=== PATIENT | female | born 1985 | race Two or more races ===

== ENCOUNTER 2024-07-26 13:54 | Outpatient (AMB) | payer MEDICAID, SELFPAY ==
--- NOTE | 2024-07-26 14:27 | GSCOFFNT_ITS ---
Vital Signs - [facility] 07/26/24 14:28 Height 1.45 m Height Method Stated Weight 100.244 kg Weight Measurement Method Standing Scale BMI 47.8 BP 156/86 H Blood Pressure Source Automatic Cuff Blood Pressure Location Right Upper Arm Position Sitting Respiration 18 Pulse 65 Pulse Source Monitor Temp 97.2 F Temp Source Temporal Artery Scan Pulse Oximetry (%) 95 Oxygen Delivery Method Room Air Med/Allergies Allergies & Medications Allergies No Known Allergies Allergy (Verified 07/26/24 14:29) Medication Reconciliation azithromycin 250 mg tablet (Zithromax Z-Óscar) See Rx Instructions PO .COMPLEX #6 tabs 03/08/20 [Rx Confirmed 07/26/24] ibuprofen 800 mg tablet 800 mg PO TID PRN pain #30 tabs 03/08/20 [Rx Confirmed 07/26/24] MA Intake Visit Data Collection New Patient or Established: New Patient (never been to [facility]) Seen by Clinical Staff ONLY (RN/MA): No Reason for Visit:: HERNIA REFERRAL Pain Present Currently: No Remote Pilot Operator Required: Yes PCP or OBGYN visit in last 3 months: Yes Hx Now: No Do You Feel Safe at Home: Yes Authorities Contacted: N/A Smoking Status Smoking Status: Never smoker Immunization / Flu Flu Vaccine in the Last 12 Months: No Flu Vaccine Exclusion Criteria: No Exclusion Criteria Past Medical History Past Medical History 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); 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 CARDIAC: Negative Cardiac Disorders, Congestive Heart Failure, Edema, Cellulitis or Varicose Veins RESPIRATORY: Negative Chronic Obstructive Pulmonary Disease (COPD), Pneumonia, Tuberculosis or Sleep Apnea GASTROINTESTINAL: Positive Gastrointestinal Disorders and Gall Bladder Disease (LAP); Negative Hepatitis GENITOURINARY: Negative Genitourinary Disorders or Renal Disease REPRODUCTIVE: Positive Previous Pregnancies (X3) ENDOCRINE: Negative Endocrine Disorders, Diabetes Mellitus Type 1 or Diabetes Mellitus Type 2 HEMATOLOGIC: Negative Blood Disorders OTHER HISTORY: Positive Chicken Pox and Measles; Negative Hospitalization, Autoimmune Disease, Shingles, Falls, Blood Transfusions, Blood Transfusion Reaction, Anesthesia Reactions, Chemotherapy, Radiation Therapy, MRSA, Mumps or Cancer Family History FAMILY HISTORY: Negative Family Psychiatric Problems, Family Respiratory Disorders, Family Cardiac Disorders, Family Gastrointestinal Problems, Family Cancer, Family Surgery or Family Anesthesia Reaction Surgical History SURGICAL: Positive Section (X2); Negative Cardiac Surgery or Pacemaker Social History SMOKING STATUS: Smoking status: Never smoker ALCOHOL: Alcohol Intake: Never HOUSING: Housing: Apartment HPI HPI Narrative 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 Pt reports she has had it for years and it tends to bother her daily, associated with pain that sometimes makes it difficult for her to sleep. She denies any obstructive symptoms. PMH: Obesity PSHx: Cholecystectomy Meds: none currently (pt had been taking ozempic for weight loss which she states helped but was no longer approved by her insurance as she does not have DM) Allergies: NKDA Social hx: Nonsmoker, works in [employer] ROS Review of Systems Systems Reviewed: All systems reviewed, normal except as documented Objective/Exam General General Appearance: alert, cooperative and well groomed Resp Respiratory exam: Absent respiratory distress Abdominal Abdominal exam: Present soft and hernia (reducible umbilical hernia, mild tenderness to palpation, no overlying skin changes); Absent distention or tenderness Results US abdomen 06/01/24 at [facility] [place]: fat containing hernia without bowel l oops. Hernia opening 1.8cm. Hernia sac measures 4.4cm Assessment & Plan Diagnosis / Problem List (1) Umbilical hernia: Status: Acute Assessment & Plan: 38F with BMI 47 presenting with symptomatic small umbilical hernia. I explained that surgery will have the best chance of success if she is able to lose weight for a goal BMI <35, which for her would mean a weight loss of approx 50lbs (goal of 170lbs), as surgery now would a confer a recurrence rate approximate 80%. Pt will reach out to her PCP to discuss weight loss options and stated that she would consider bariatric surgery. 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 3 ([id number]) Patient Portal Questionaires Social History Living Situation History Housing: Apartment Tobacco History Smoking Status: Never smoker Alcohol History Alcohol Intake: Never Domestic Abuse History Do You Feel Safe at Home: Yes Review of Systems Report any current symptoms Only answer those that you have currently: Past Medical History Past Medical History Have you ever been diagnosed with any of the following: Neurological Problems Seizures: No Delgado's Palsy: Yes (LEFT FACIAL DROOP 2012) Cardiology Problems Congestive Heart Failure: No Edema: No Cellulitis: No Varicose Veins: No Respiratory Problems Chronic Obstructive Pulmonary Disease (COPD): No Pneumonia: No Tuberculosis: No Sleep Apnea: No Stomache/Intestinal Problems Hepatitis: No Gall Bladder Disease: Yes (LAP) Genital/Urinary Problems Renal Disease: No Reproductive Problems Previous Pregnancies: Yes (X3) Endocrine Problems Diabetes Mellitus Type 1: No Diabetes Mellitus Type 2: No Other Problems Hospitalization: No Autoimmune Disease: No Shingles: No Falls: No Blood Transfusions: No Blood Transfusion Reaction: No Anesthesia Reactions: No Chemotherapy: No Radiation Therapy: No MRSA: No Chicken Pox: Yes Measles: Yes Mumps: No Cancer: No Surgical History Pacemaker: No
[2024-07-26 14:28] VITALS: BP 156/86; PULSE 65; RESP 18; TEMP 36.2; O2SAT 95; BMI 47.8
== END 2024-07-26 15:02 | disposition home or self-care (01) ==
LOC: HODSRG 13:54
PROVIDERS: PCP Physician Assistant; Referring Provider Physician Assistant; Supervising Provider Surgery; Visit Provider Surgery
DX: K42.9 Umbilical hernia without obstruction or gangrene (principal)
CPT/HCPCS: 99203; G0463

== ENCOUNTER 2024-08-18 03:24 | Emergency (ER) | payer MEDICAID, SELFPAY ==
[2024-08-18 03:32] VITALS: BP 155/69; PULSE 59; RESP 19; TEMP 36.6; O2SAT 98; BMI 41.0
--- NOTE | 2024-08-18 04:02 | EDNOTE_ITS ---
ED Ear RME/HPI General Chief complaint: Ear Stated complaint: SOMETHING IN RIGHT EAR Time Seen by Provider: 08/18/24 03:54 Arrival date/time: 08/18/24 03:24 38F with no significant PMH presents to ED with bug in R ear. Limitations: no limitations Related Data Previous Rx's ?Medication ?Instructions ?Recorded azithromycin 250 mg tablet See Rx Instructions PO .COMPLEX #6 03/08/20 (Zithromax Z-Óscar) tabs ibuprofen 800 mg tablet 800 mg PO TID PRN pain #30 tabs 03/08/20 [id number] 3.5 4 drp otic (ear) BID 5 days #10 mL 08/18/24 mg-10,000 unit/mL-1 % ear drops,susp Allergies Allergy/AdvReac Type Severity Reaction Status Date / Time No Known Allergies Allergy Verified 07/26/24 14:29 Review of Systems Review of Systems Systems Reviewed: All systems reviewed, normal except as documented Constitutional Constitutional: Reports system reviewed and no additional complaints, except as documented, Denies fever(s) and Denies headache(s) ENT Ears, Nose, Mouth, and Throat: Reports as per HPI, Denies disequilibrium, Reports otalgia (FB ear) and Denies headache(s) Cardiovascular Cardiovascular: Reports system reviewed and no additional complaints, except as documented, Denies chest pain and Denies dyspnea Respiratory Respiratory: Reports system reviewed and no additional complaints, except as documented, Denies cough and Denies dyspnea Gastrointestinal Gastrointestinal: Reports system reviewed and no additional complaints, except as documented, Denies abdominal pain, Denies nausea and Denies vomiting Neurologic Neurologic: Reports system reviewed and no additional complaints, except as documented, Denies confusion, Denies disequilibrium and Denies headache(s) Psychiatric Psychiatric: Denies confusion Past Medical History Past Medical History 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); 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 CARDIAC: Negative Cardiac Disorders, Congestive Heart Failure, Edema, Cellulitis or Varicose Veins RESPIRATORY: Negative Chronic Obstructive Pulmonary Disease (COPD), Pneumonia, Tuberculosis or Sleep Apnea GASTROINTESTINAL: Positive Gastrointestinal Disorders and Gall Bladder Disease (LAP); Negative Hepatitis GENITOURINARY: Negative Genitourinary Disorders or Renal Disease REPRODUCTIVE: Positive Previous Pregnancies (X3) MUSCULOSKELETAL: Positive Musculoskeletal Disorders ENDOCRINE: Negative Endocrine Disorders, Diabetes Mellitus Type 1 or Diabetes Mellitus Type 2 HEMATOLOGIC: Negative Blood Disorders OTHER HISTORY: Positive Chicken Pox and Measles; Negative Hospitalization, Autoimmune Disease, Shingles, Falls, Blood Transfusions, Blood Transfusion Reaction, Anesthesia Reactions, Chemotherapy, Radiation Therapy, MRSA, Mumps or Cancer Family History FAMILY HISTORY: Negative Family Psychiatric Problems, Family Respiratory Disorders, Family Cardiac Disorders, Family Gastrointestinal Problems, Family Cancer, Family Surgery or Family Anesthesia Reaction Surgical History SURGICAL: Positive Section (X2); Negative Cardiac Surgery or Pacemaker Social History SMOKING STATUS: Never smoker ED Exam General Limitations: Present no limitations General appearance: Present alert and in no apparent distress Head Head exam: Present atraumatic Eye Eye exam: Present normal appearance, PERRL and EOMI ENT ENT exam: Present normal oropharynx and mucous membranes moist Expanded ENT Exam TM/Canal exam: Right TM: foreign body Neck Neck exam: Present normal inspection, full ROM and trachea midline Chest Chest inspection: Present normal inspection and symmetric chest wall rise Respiratory Respiratory exam: Present normal lung sounds bilaterally Cardiovascular Cardiovascular exam: Present regular rate, normal rhythm and normal heart sounds Abdominal Exam Abdominal exam: Present soft and normal bowel sounds Extremities Exam Extremities exam: Present normal inspection and full ROM Back Exam Back exam: Present normal inspection and full ROM Neurological Exam Neurological exam: Present alert, oriented X3 and CN II-XII intact Psychiatric Psychiatric exam: Present normal affect and normal mood Skin Skin exam: Present warm, dry, intact and normal color Course Quality Measures none Orders Category Date Time Status ED Ear Irrigation X1 Care 08/18/24 03:55 Active Vital Signs Vital signs: Vital Signs Temperature 98 F 08/18/24 03:32 Pulse Rate 59 L 08/18/24 03:32 Respiratory Rate 19 08/18/24 03:32 Blood Pressure 155/69 H 08/18/24 03:32 Pulse Oximetry (%) 98 08/18/24 03:32 Oxygen Delivery Method Room Air 08/18/24 03:32 O2 at 98% on RA and WNLs Ear MDM Narrative MDM Narrative:: 38F with no significant PMH presents to ED with bug in R ear. Physical exam reveals bug in R ear. Patient is afebrile, calm, and alert. FB removed. ABX prophylaxis given. Patient data External records reviewed:: [facility] previous records Clinical information provided by:: patient Social determinants that could affect healthcare access:: none Patient has the following chronic illnesses:: none How is presenting disease/condition affected by chronic disease/condition?: no chronic disease Evaluation data The following diagnostics were reviewed and interpreted by me:: other (specify) (none) Lab and/or radiology exams considered but not ordered:: not ordered Interpretation Summary: n/a Medications / Prescriptions Medications or Prescriptions considered but not ordered:: not ordered Medication administrations:: n/a Consultations Consultation(s) initiated? (list below): No Diagnosis Ear Differential Diagnosis: otitis externa, otitis media, foreign body in ear, ruptured TM and cerumen impaction Most likely diagnosis given after review of the tests above:: FB ear Admission Indicated Admission indicated?: not indicated Explain why admission is indicated or not indicated:: outpatient Admission Request Was there a request for admission?: No Disposition Plan Disposition Plan: Discharge Discharge Attestation Discharge Attestation: The patient and all family members were given an opportunity to ask questions and understood the discharge instructions. Discharge instructions specifically effects, indications for sooner follow up or return to the emergency department, and the expected course of current diagnosis. Patient condition: Stable Discharge Plan Plan Patient Disposition: HOME (Self Care) Disposition Comment: Stable Prescriptions/Referrals Prescriptions/Med Rec: New iupfmotl-xzqpjfeng-TN 3.5-10,000-1 mg/mL-unit/mL-% drops,suspension 4 drp otic (ear) BID 5 Days Qty: 10 0RF No Action ibuprofen 800 mg tablet 800 mg PO TID PRN (Reason: pain) Qty: 30 0RF azithromycin [Zithromax Z-Óscar] 250 mg tablet See Rx Instructions .ROUTE .COMPLEX Qty: 6 0RF Rx Instructions: take 500 mg today (day 1), then 250 mg for 4 days (days 2-5) Problem List Clinical Impression: Foreign body in ear Patient/Caregiver Discharge Instructions Additional Instructions: Please follow-up with PCP within 24-48 hours and return immediately if symptoms worsen. Print Language: Turkmen Stand Alone Forms: Patient Portal Info Letter FARHEEN/JACY Supervising Physician FARHEEN/JACY Supervising Physician: Dr. Hugo
== END 2024-08-18 04:27 | disposition home or self-care (01) ==
PROVIDERS: Emergency Provider Emergency Medicine; PCP Physician Assistant
DX: T16.1XXA Foreign body in right ear, initial encounter (principal); W44.F4XA Insect entering into or through a natural orifice, initial encounter
CPT/HCPCS: 69200; 99283

== ENCOUNTER 2024-09-27 15:02 | Outpatient (AMB) | payer MEDICAID, SELFPAY ==
[2024-09-27 15:18] VITALS: BP 145/82; PULSE 68; RESP 18; TEMP 36.2; O2SAT 95; BMI 40.7
--- NOTE | 2024-09-27 15:18 | GSCOFFNT_ITS ---
Vital Signs - [facility] 09/27/24 15:18 Height 1.52 m Height Method Stated Weight 94.149 kg Weight Measurement Method Standing Scale BMI 40.7 BP 145/82 H Blood Pressure Source Automatic Cuff Blood Pressure Location Left Upper Arm Position Sitting Respiration 18 Pulse 68 Pulse Source Monitor Temp 97.1 F Temp Source Temporal Artery Scan Pulse Oximetry (%) 95 Oxygen Delivery Method Room Air Med/Allergies Allergies & Medications Allergies No Known Allergies Allergy (Verified 09/27/24 15:19) Medication Reconciliation azithromycin 250 mg tablet (Zithromax Z-Óscar) See Rx Instructions PO .COMPLEX #6 tabs 03/08/20 [Rx Confirmed 09/27/24] ibuprofen 800 mg tablet 800 mg PO TID PRN pain #30 tabs 03/08/20 [Rx Confirmed 09/27/24] MA Intake Visit Data Collection New Patient or Established: Established Patient (seen at [facility] within 3 years) Seen by Clinical Staff ONLY (RN/MA): No Reason for Visit:: FOLLOW UP Pain Present Currently: No Anchor Operator Required: Yes PCP or OBGYN visit in last 3 months: Yes Hx Now: No Do You Feel Safe at Home: Yes Authorities Contacted: N/A Smoking Status Smoking Status: Never smoker Immunization / Flu Flu Vaccine in the Last 12 Months: No Flu Vaccine Exclusion Criteria: No Exclusion Criteria Past Medical History Past Medical History 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); 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 CARDIAC: Negative Cardiac Disorders, Congestive Heart Failure, Edema, Cellulitis or Varicose Veins RESPIRATORY: Negative Chronic Obstructive Pulmonary Disease (COPD), Pneumonia, Tuberculosis or Sleep Apnea GASTROINTESTINAL: Positive Gastrointestinal Disorders and Gall Bladder Disease (LAP); Negative Hepatitis GENITOURINARY: Negative Genitourinary Disorders or Renal Disease REPRODUCTIVE: Positive Previous Pregnancies (X3) ENDOCRINE: Negative Endocrine Disorders, Diabetes Mellitus Type 1 or Diabetes Mellitus Type 2 HEMATOLOGIC: Negative Blood Disorders OTHER HISTORY: Positive Chicken Pox and Measles; Negative Hospitalization, Autoimmune Disease, Shingles, Falls, Blood Transfusions, Blood Transfusion Reaction, Anesthesia Reactions, Chemotherapy, Radiation Therapy, MRSA, Mumps or Cancer Family History FAMILY HISTORY: Negative Family Psychiatric Problems, Family Respiratory Disorders, Family Cardiac Disorders, Family Gastrointestinal Problems, Family Cancer, Family Surgery or Family Anesthesia Reaction Surgical History SURGICAL: Positive Section (X2); Negative Cardiac Surgery or Pacemaker Social History SMOKING STATUS: Smoking status: Never smoker ALCOHOL: Alcohol Intake: Never HOUSING: Housing: Apartment HPI HPI Narrative 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 At last visit we discussed that a BMI <35 would confer a higher chance of success for surgery, translating to a loss of 50lbs. Pt has since begun taking wegovy, and she adjusted her diet to cut out carbs and sugar. She continues to have discomfort from the hernia but finds it manageable, and was also recently diagnosed with HTN, preDM and liver disease ROS Review of Systems Systems Reviewed: All systems reviewed, normal except as documented Objective/Exam General General Appearance: alert, cooperative and well groomed Resp Respiratory exam: Absent respiratory distress Abdominal Abdominal exam: Present soft and hernia (reducible umbilical hernia); Absent distention or tenderness Assessment & Plan Diagnosis / Problem List (1) Umbilical hernia: Status: Acute Assessment & Plan: 38F here for follow up of umbilical hernia. I explained that if her pain were not manageable it would be reasonable to pursue surgery before she attains BMI <35, but that if pain is not too bothersome I would recommend continuing her weight loss efforts to maximize the chance of success. Pt expressed understanding and is agreeable to continuing her weight loss, but will reach out if concerns or questions arise before her next follow up Plan: Follow up in 3 mos Office Procedures GNS Level of Care Nursing/Assessment Patient Status: Established Patient Nursing Assessment/Reassesment: Medication Reconciliation, Update PMH in EMR and Vital Signs Coordination of Care: Complex Care and Chronic Disease 1-5, Consent,records obtained, informed consent, Education Simp Pt/Fam, Results/Orders obtained and Staff clarify orders Special Needs: Language special needs Established Patient Charge Established Patient Point Assignment: 90 Established Patient Point Charge: EP Level 3 (80-115) Patient Portal Questionaires Social History Living Situation History Housing: Apartment Tobacco History Smoking Status: Never smoker Alcohol History Alcohol Intake: Never Domestic Abuse History Do You Feel Safe at Home: Yes Review of Systems Report any current symptoms Only answer those that you have currently: Past Medical History Past Medical History Have you ever been diagnosed with any of the following: Neurological Problems Seizures: No Delgado's Palsy: Yes (LEFT FACIAL DROOP 2012) Cardiology Problems Congestive Heart Failure: No Edema: No Cellulitis: No Varicose Veins: No Respiratory Problems Chronic Obstructive Pulmonary Disease (COPD): No Pneumonia: No Tuberculosis: No Sleep Apnea: No Stomache/Intestinal Problems Hepatitis: No Gall Bladder Disease: Yes (LAP) Genital/Urinary Problems Renal Disease: No Reproductive Problems Previous Pregnancies: Yes (X3) Endocrine Problems Diabetes Mellitus Type 1: No Diabetes Mellitus Type 2: No Other Problems Hospitalization: No Autoimmune Disease: No Shingles: No Falls: No Blood Transfusions: No Blood Transfusion Reaction: No Anesthesia Reactions: No Chemotherapy: No Radiation Therapy: No MRSA: No Chicken Pox: Yes Measles: Yes Mumps: No Cancer: No Surgical History Pacemaker: No
== END 2024-09-27 15:37 | disposition home or self-care (01) ==
LOC: HODSRG 15:02
PROVIDERS: PCP Physician Assistant; Referring Provider Physician Assistant; Supervising Provider Surgery; Visit Provider Surgery
DX: K42.9 Umbilical hernia without obstruction or gangrene (principal)
CPT/HCPCS: 99213; G0463

== ENCOUNTER 2024-12-29 13:38 | Outpatient (AMB) | payer MEDICAID, SELFPAY ==
[2024-12-29 14:04] VITALS: BP 120/77; PULSE 60; RESP 18; TEMP 36.3; O2SAT 96; BMI 36.6
--- NOTE | 2024-12-29 14:04 | GSCOFFNT_ITS ---
Vital Signs - [facility] 12/29/24 14:04 Height 1.52 m Height Method Stated Weight 84.595 kg Weight Measurement Method Standing Scale BMI 36.6 BP 120/77 Blood Pressure Source Automatic Cuff Blood Pressure Location Right Upper Arm Position Sitting Respiration 18 Pulse 60 Pulse Source Monitor Temp 97.3 F Temp Source Temporal Artery Scan Pulse Oximetry (%) 96 Oxygen Delivery Method Room Air Med/Allergies Allergies & Medications Allergies No Known Allergies Allergy (Verified 12/29/24 14:10) Medication Reconciliation azithromycin 250 mg tablet (Zithromax Z-Óscar) See Rx Instructions PO .COMPLEX #6 tabs 03/08/20 [Rx Confirmed 12/29/24] ibuprofen 800 mg tablet 800 mg PO TID PRN pain #30 tabs 03/08/20 [Rx Confirmed 12/29/24] MA Intake Visit Data Collection New Patient or Established: Established Patient (seen at [facility] within 3 years) Seen by Clinical Staff ONLY (RN/MA): No Reason for Visit:: F/U 3 MONTHS Pain Present Currently: Yes Pain Location: Abdomen Pain scale:: 3 Pain Scale Used: Sheppard-Moran/Numerical Electric Range Servicer Required: Yes PCP or OBGYN visit in last 3 months: Yes Hx Now: No Do You Feel Safe at Home: Yes Authorities Contacted: N/A Smoking Status Smoking Status: Never smoker Immunization / Flu Flu Vaccine in the Last 12 Months: No Flu Vaccine Exclusion Criteria: No Exclusion Criteria Past Medical History Past Medical History 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; 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 CARDIAC: Negative Cardiac Disorders, Congestive Heart Failure, Edema, Cellulitis or Varicose Veins RESPIRATORY: Negative Chronic Obstructive Pulmonary Disease (COPD), Pneumonia, Tuberculosis or Sleep Apnea GASTROINTESTINAL: Positive Gastrointestinal Disorders and Gall Bladder Disease; Negative Hepatitis GENITOURINARY: Negative Genitourinary Disorders or Renal Disease REPRODUCTIVE: Positive Previous Pregnancies ENDOCRINE: Negative Endocrine Disorders, Diabetes Mellitus Type 1 or Diabetes Mellitus Type 2 HEMATOLOGIC: Negative Blood Disorders OTHER HISTORY: Positive Chicken Pox and Measles; Negative Hospitalization, Autoimmune Disease, Shingles, Falls, Blood Transfusions, Blood Transfusion Reaction, Anesthesia Reactions, Chemotherapy, Radiation Therapy, MRSA, Mumps or Cancer Family History FAMILY HISTORY: Negative Family Psychiatric Problems, Family Respiratory Disorders, Family Cardiac Disorders, Family Gastrointestinal Problems, Family Cancer, Family Surgery or Family Anesthesia Reaction Surgical History SURGICAL: Positive Section (X2); Negative Cardiac Surgery or Pacemaker Social History SMOKING STATUS: Smoking status: Never smoker ALCOHOL: Alcohol Intake: Never HOUSING: Housing: Apartment HPI HPI Narrative Spoke to pt with in-person manager field services 39F here for follow up of umbilical hernia. Pt has been working hard at weight loss and her BMI is now 36. She has occasional pains at her umbilicus but it is overall manageable. Pt does report that she has occasional drainage from her umbilicus which is yellow and malodorous; she states she has had this for years but it comes and goes and she has not had any workup for it. She denies any dysuria or change in the appearance of her urine ROS Review of Systems Systems Reviewed: All systems reviewed, normal except as documented Objective/Exam General General Appearance: alert, cooperative and well groomed Resp Respiratory exam: Absent respiratory distress Abdominal Abdominal exam: Present soft and hernia (reducible umbilical hernia, tender with malodor but no current drainage and no overlying skin changes); Absent distention or tenderness Assessment & Plan Diagnosis / Problem List (1) Umbilical hernia: Status: Acute Assessment & Plan: 39F with known umbilical hernia reporting chronic intermittent umbilical drainage. I explained that before surgery she should undergo workup to evaluate for a patent urachus which might explain her symptoms and would require a different surgical approach. All questions were answered and pt expressed understanding Orders: Orders CT abdomen pelvis w con Today K42.9 - Umbilical hernia without obstruction or gangrene Office Procedures GNS Level of Care Nursing/Assessment Patient Status: Established Patient Nursing Assessment/Reassesment: Medication Reconciliation, Update PMH in EMR and Vital Signs Coordination of Care: Complex Care and Chronic Disease 1-5, Education Complex Pt/Fam, Consent,records obtained, informed consent, Results/Orders obtained and Staff clarify orders Special Needs: Language special needs Established Patient Charge Established Patient Point Assignment: 95 Established Patient Point Charge: EP Level 3 (80-115) Patient Portal Questionaires Social History Living Situation History Housing: Apartment Tobacco History Smoking Status: Never smoker Alcohol History Alcohol Intake: Never Domestic Abuse History Do You Feel Safe at Home: Yes Review of Systems Report any current symptoms Only answer those that you have currently: Past Medical History Past Medical History Have you ever been diagnosed with any of the following: Neurological Problems Seizures: No Delgado's Palsy: Yes Cardiology Problems Congestive Heart Failure: No Edema: No Cellulitis: No Varicose Veins: No Respiratory Problems Chronic Obstructive Pulmonary Disease (COPD): No Pneumonia: No Tuberculosis: No Sleep Apnea: No Stomache/Intestinal Problems Hepatitis: No Gall Bladder Disease: Yes Genital/Urinary Problems Renal Disease: No Reproductive Problems Previous Pregnancies: Yes Endocrine Problems Diabetes Mellitus Type 1: No Diabetes Mellitus Type 2: No Other Problems Hospitalization: No Autoimmune Disease: No Shingles: No Falls: No Blood Transfusions: No Blood Transfusion Reaction: No Anesthesia Reactions: No Chemotherapy: No Radiation Therapy: No MRSA: No Chicken Pox: Yes Measles: Yes Mumps: No Cancer: No Surgical History Pacemaker: No
== END 2024-12-29 14:20 | disposition home or self-care (01) ==
LOC: HODSRG 13:38
PROVIDERS: PCP Physician Assistant; Referring Provider Physician Assistant; Supervising Provider Surgery; Visit Provider Surgery
DX: K42.9 Umbilical hernia without obstruction or gangrene (principal)
CPT/HCPCS: 99213; G0463

== ENCOUNTER → 2025-01-26 | Outpatient (CLI) | payer MEDICAID, SELFPAY ==
[2025-01-25 16:52] LABS: HCG Qualitative,Urine Negative
--- NOTE | 2025-01-26 15:00 | XR_ITS ---
Examination: CT abdomen with intravenous contrast. Coronal 2-D reconstructions. Sagittal 2-D reconstructions. Date and time of exam:January 26, 2025 1510 hours INDICATIONS: Diagnosis umbilical pain beginning fluid from the umbilicus CTDI: vol (mGy): 12.3 DLP: (mGycm): 102 Technique: Axial images of the abdomen have been obtained, 3 mm slice thickness, 60 cc [id number] 2-D sagittal coronal reconstructions Low dose protocols were performed. One or more of the following dose reduction techniques were used; automated exposure control, adjustment of the mA and/or KV according to patient size, use of iterative reconstruction technique. Findings: No focal liver or splenic lesion Absent gallbladder No extra hepatic biliary tract dilatation No pancreatic mass No renal or ureteral calculi, no hydronephrosis 32 mm fat-containing umbilical hernia These images do not actually extend through the entire hernia defect IMPRESSION: 32 mm fat-containing umbilical hernia, these abdomen images do not extend to the entire hernia defect
== END | disposition home or self-care (01) ==
LOC: CCTX 14:44
PROVIDERS: Referring Provider Surgery; Visit Provider Surgery
DX: K42.9 Umbilical hernia without obstruction or gangrene (principal); Z32.00 Encounter for pregnancy test, result unknown
CPT/HCPCS: 74160; 81025; A4649; Q9967

== ENCOUNTER → 2025-03-04 | Outpatient (CLI) | payer MEDICAID, SELFPAY ==
--- NOTE | 2025-03-04 10:00 | XR_ITS ---
Examination: Abdomen sonogram, complete Date and time of exam: March 04, 2025 1007 hours INDICATIONS: Umbilical discharge and pain beginning 6 months ago. Technique: Multiple real-time grayscale transabdominal sonographic images of the abdomen have been obtained. Findings: Absent gallbladder Normal common bile duct 0.5 cm Pancreatic head 2.5 cm Aorta not enlarged Liver 14.7 cm fatty infiltration no focal liver lesions Normal hepatopedal portal venous flow Patent IVC Right kidney 11.3 cm cortex 1.9 cm Left kidney 11.4 cm cortex 1.8 cm Mild bilateral renal parenchymal scar formation Spleen 9.2 cm IMPRESSION: Normal common bile duct Fatty liver Mild bilateral renal parenchymal scar formation
== END | disposition home or self-care (01) ==
PROVIDERS: PCP Surgery; Referring Provider Surgery; Visit Provider Surgery
DX: K76.0 Fatty (change of) liver, not elsewhere classified (principal); N28.89 Other specified disorders of kidney and ureter
CPT/HCPCS: 76700

== ENCOUNTER 2025-03-14 11:26 | Outpatient (AMB) | payer MEDICAID, SELFPAY ==
[2025-03-14 11:34] VITALS: BP 128/80; PULSE 60; RESP 18; TEMP 36.6; O2SAT 98; BMI 34.4
--- NOTE | 2025-03-14 11:34 | GSCOFFNT_ITS ---
Vital Signs - [facility] 03/14/25 11:34 Height 1.52 m Height Method Stated Weight 79.577 kg Weight Measurement Method Standing Scale BMI 34.4 BP 128/80 Blood Pressure Source Automatic Cuff Blood Pressure Location Left Upper Arm Position Sitting Respiration 18 Pulse 60 Pulse Source Monitor Temp 97.9 F Temp Source Temporal Artery Scan Pulse Oximetry (%) 98 Oxygen Delivery Method Room Air Med/Allergies Allergies & Medications Allergies No Known Allergies Allergy (Verified 03/14/25 11:35) Medication Reconciliation azithromycin 250 mg tablet (Zithromax Z-Óscar) See Rx Instructions PO .COMPLEX #6 tabs 03/08/20 [Rx Confirmed 03/14/25] ibuprofen 800 mg tablet 800 mg PO TID PRN pain #30 tabs 03/08/20 [Rx Confirmed 03/14/25] MA Intake Visit Data Collection New Patient or Established: Established Patient (seen at [facility] within 3 years) Seen by Clinical Staff ONLY (RN/MA): No Reason for Visit:: US RESULTS Pain Present Currently: No Char Filter Tank Tender Required: Yes PCP or OBGYN visit in last 3 months: Yes Smoking Status Smoking Status: Never smoker Immunization / Flu Flu Vaccine in the Last 12 Months: No Flu Vaccine Exclusion Criteria: No Exclusion Criteria Past Medical History Past Medical History 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; 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 CARDIAC: Negative Cardiac Disorders, Congestive Heart Failure, Edema, Cellulitis or Varicose Veins RESPIRATORY: Negative Chronic Obstructive Pulmonary Disease (COPD), Pneumonia, Tuberculosis or Sleep Apnea GASTROINTESTINAL: Positive Gastrointestinal Disorders and Gall Bladder Disease; Negative Hepatitis GENITOURINARY: Negative Genitourinary Disorders or Renal Disease REPRODUCTIVE: Positive Previous Pregnancies ENDOCRINE: Negative Endocrine Disorders, Diabetes Mellitus Type 1 or Diabetes Mellitus Type 2 HEMATOLOGIC: Negative Blood Disorders OTHER HISTORY: Positive Chicken Pox and Measles; Negative Hospitalization, Autoimmune Disease, Shingles, Falls, Blood Transfusions, Blood Transfusion Reaction, Anesthesia Reactions, Chemotherapy, Radiation Therapy, MRSA, Mumps or Cancer Family History FAMILY HISTORY: Negative Family Psychiatric Problems, Family Respiratory Disorders, Family Cardiac Disorders, Family Gastrointestinal Problems, Family Cancer, Family Surgery or Family Anesthesia Reaction Surgical History SURGICAL: Positive Section (X2); Negative Cardiac Surgery or Pacemaker Social History SMOKING STATUS: Smoking status: Never smoker ALCOHOL: Alcohol Intake: Never HOUSING: Housing: Apartment HPI HPI Narrative Spoke to pt with in-person boot lace cutter machine 39F here for follow up of umbilical hernia after US was negative for signs of patent urachus. Pt states she has not had any umbilical drainage of late and she confirms again that she has no history of urinary problems including dysuria or infection ROS Review of Systems Systems Reviewed: All systems reviewed, normal except as documented Objective/Exam General General Appearance: alert, cooperative and well groomed Resp Respiratory exam: Absent respiratory distress Abdominal Abdominal exam: Present soft and hernia (reducible umbilical hernia with no overlying skin changes, moderate tenderness to palpation); Absent distention or tenderness Assessment & Plan Diagnosis / Problem List (1) Umbilical hernia: Status: Acute Assessment & Plan: 39F presenting with symptomatic umbilical hernia who has lost weight preoperatively with BMI now <40. I explained benefits/risks of surgery including infection potentially requiring mesh removal as well as the risk of hernia recurrence, and the need for avoiding heavy lifting for 6 weeks postoperatively. All questions were answered and pt is agreeable to proceeding Office Procedures GNS Level of Care Nursing/Assessment Patient Status: Established Patient Nursing Assessment/Reassesment: Medication Reconciliation, Update PMH in EMR and Vital Signs Coordination of Care: Complex Care and Chronic Disease 1-5, Consent,records obtained, informed consent, Education Simp Pt/Fam, Results/Orders obtained and Staff clarify orders Special Needs: Language special needs Established Patient Charge Established Patient Point Assignment: 90 Established Patient Point Charge: EP Level 3 (80-115) Patient Portal Questionaires Social History Living Situation History Housing: Apartment Tobacco History Smoking Status: Never smoker Alcohol History Alcohol Intake: Never Review of Systems Report any current symptoms Only answer those that you have currently: Past Medical History Past Medical History Have you ever been diagnosed with any of the following: Neurological Problems Seizures: No Delgado's Palsy: Yes Cardiology Problems Congestive Heart Failure: No Edema: No Cellulitis: No Varicose Veins: No Respiratory Problems Chronic Obstructive Pulmonary Disease (COPD): No Pneumonia: No Tuberculosis: No Sleep Apnea: No Stomache/Intestinal Problems Hepatitis: No Gall Bladder Disease: Yes Genital/Urinary Problems Renal Disease: No Reproductive Problems Previous Pregnancies: Yes Endocrine Problems Diabetes Mellitus Type 1: No Diabetes Mellitus Type 2: No Other Problems Hospitalization: No Autoimmune Disease: No Shingles: No Falls: No Blood Transfusions: No Blood Transfusion Reaction: No Anesthesia Reactions: No Chemotherapy: No Radiation Therapy: No MRSA: No Chicken Pox: Yes Measles: Yes Mumps: No Cancer: No Surgical History Pacemaker: No
== END 2025-03-14 11:56 | disposition home or self-care (01) ==
LOC: HODSRG 11:26
PROVIDERS: Supervising Provider Surgery; Visit Provider Surgery
DX: K42.9 Umbilical hernia without obstruction or gangrene (principal)
CPT/HCPCS: 99213; G0463

== ENCOUNTER 2025-03-30 08:05 | Day surgery (SDC) | payer MEDICAID, SELFPAY ==
[2025-03-24 06:57] VITALS: BMI 37.8
[2025-03-24 08:55] LABS: Basophils # (Auto) 0.1 Thou/mm3 (0.0-0.2); Basophils % (Auto) 1 % (0-2.5); Eosinophils # (Auto) 0.4 Thou/mm3 (0.0-0.5); Eosinophils % (Auto) 5 % (0-10); Hematocrit 39.5 % (36.0-46.0); Hemoglobin 13.4 g/dL (12.0-16.0); Immature Granulocytes Auto 0.03 Thou/mm3 (0.00-0.00); Lymphocytes # (Auto) 4.0 Thou/mm3 (1.0-4.8); Lymphocytes % (Auto) 50 % (10-50); Mean Corpuscular HGB Conc 33.9 g/dl (31.0-37.0); Mean Corpuscular Hemoglobin 29.0 pg (25.0-35.0); Mean Corpuscular Volume 86 fL (80-100); Monocytes # (Auto) 0.4 Thou/mm3 (0.0-0.8); Monocytes % (Auto) 6 % (0-12); Neutrophils # (Auto) 3.1 Thou/mm3 (1.8-7.7); Neutrophils % (Auto) 39 % (37-80); Nucleated Red Blood Cell # 0.00 Thou/mm3 (0.00-0.00); Nucleated Red Blood Cell % 0 /100 WBC (0); Platelet Count 280 Thou/mm3 (140-440); RDW Standard Deviation 39.2 fL (36.4-46.3); Red Blood Count 4.62 Miln/mm3 (4.00-5.20); White Blood Count 8.0 Thou/mm3 (3.6-11.0)
[2025-03-24 09:05] LABS: Anion Gap 4 (7-16); BUN/Creatinine Ratio 15 Ratio (12-20); Blood Urea Nitrogen 12 mg/dL (9-23); Calcium 8.9 mg/dL (8.3-10.6); Carbon Dioxide 27.9 mMol/L (20.0-31.0); Chloride 108 mMol/L (98-107); Creatinine (Component) 0.8 mg/dL (0.6-1.3); Estimated Creatinine Clearance 80.1 mL/min (>60); Glucose 85 mg/dL (74-106); Osmolality,Calculated 278 (275-295); Potassium 4.2 mMol/L (3.4-5.1); Sodium 140 mMol/L (136-145); eGFR > 60 See Note
[2025-03-24 09:08] LABS: INR 0.9 (0.9-1.3); Partial Thromboplastin Time 34.5 Seconds (22.0-36.0); Prothrombin Time 10.3 Seconds (9.0-12.2)
[2025-03-24 09:26] LABS: HCG,Qualitative Serum Negative
[2025-03-30] VITALS (8 sets, daily range): BP systolic 123–145; BP diastolic 65–82; PULSE 62–87; RESP 12–20; TEMP 36.3–36.5; O2SAT 97–100; BMI 37.8
[2025-03-30] MEDS: RINGERS LACTATED 1000 ML 1,000 ML 20 ML IV (08:35)
--- NOTE | 2025-03-30 12:06 | PD.SUROPNT ---
Date of Procedure 03/30/25 Pre Op Diagnosis Symptomatic umbilical hernia Post Op Diagnosis Same Procedure Repair of umbilical hernia with mesh Findings Chronic umbilical hernia containing fat Procedure Description After discussion of risks and benefits, patient was brought to the operating room, SCDs were placed and general anesthesia was induced. She received preoperative antibiotics and was prepped and draped in usual sterile fashion. After timeout a curvilinear infraumbilical incision was made with a #15 blade. The subcutaneous tissues were divided with electrocautery. The hernia sac was dissected circumferentially using a combination of blunt dissection and electrocautery, and gently dissected from the undersurface of the umbilical skin. The hernia sac was opened to reveal omentum which was reduced back into the abdomen. The hernia sac was transected and sent off as specimen. The hernia defect was palpated and there were no intra-abdominal adhesions. A 4.3 cm Ventralex hernia patch was placed into the hernia defect and noted to be flat against the abdominal wall. The hernia defect was closed over the hernia mesh using interrupted 0 Ethibond sutures. The straps from the Ventralex match were also secured to the fascia using 0 Ethibond sutures and the straps were then trimmed to size. The wound was irrigated and there were no signs of bleeding. The subcutaneous tissue was approximated with interrupted 2-0 Vicryl sutures and the skin was closed with 4-0 Monocryl. The skin was covered with Steri-Strips, gauze and Tegaderm. Patient was extubated and brought to PACU in stable condition Pathology / specimen Other (Hernia sac, omentum) Estimated Blood Loss 20 Surgeon Madiha Chester MD Surgical Staff Operation Date: 03/30/25 10:30 Case Staff Anesthesiologist: Ney Fung RN First Assistant: Monet Delatorre
--- NOTE | 2025-03-30 12:08 | SUR.PHASEI ---
pt received from OR in recovery bay 3. pt asleep but responds to voice, breathing unlabored on oxymask 8l. v/s stable. pt dressing to abd cdi. small superficial la located slightly above dressing on pts abd. Hardik WANG stated he would inform Dr. Chester of la. report received from Hardik WANG and Dr. Fung.
--- NOTE | 2025-03-30 12:16 | PD.SURDS ---
Planned Discharge Date 03/30/25 DS: Providers Provider Primary care physician: Amada Monique PA-C Attending Provider on Admission: Madiha Chester MD Attending Provider on DC: Madiha Chester MD Discharging Provider: Madiha Chester MD Diagnosis Discharge Diagnosis (1) Umbilical hernia: Status: Acute Problem List Completed Was Problem List Reviewed/Reconciled?: Yes Exam Vital Signs Temp Pulse Resp BP Pulse Ox O2 Flow Rate 97.5 F 87 12 134/77 H 100 8 03/30/25 12:08 03/30/25 12:03/30/25 12:03/30/25 12:03/30/25 12:08 03/30/25 12:08 Discharge Plan Plan Patient Disposition: HOME (Self Care) Prescriptions/Referrals Prescriptions/Med Rec: New oxycodone-acetaminophen [Percocet] 5-325 mg tablet 1 tab PO Q4H MDD 6 tabs PRN (Reason: pain) Qty: 20 0RF Rx Instructions: Take 1 tablet every 4 to 6 hours as needed for severe pain docusate sodium [Colace] 100 mg capsule 100 mg PO QDAY PRN (Reason: constipation) Qty: 30 0RF Rx Instructions: Take as needed for constipation related to opioid use No Action Wegovy 1.7 mg/0.75 mL pen injector 1.7 mg SUBCUT .weekly Referrals: Madiha Chester MD [Physician] - (You will receive a phone call to confirm a follow-up appointment with me in 2 weeks) Amada Monique PA-C [Primary Care Provider] - Patient/Caregiver Discharge Instructions Other Discharge Activity Instructions:: Avoid strenuous activity including lifting objects greater than 10 pounds for 6 weeks You may remove your outer dressing in 2 days, on 04/01 It is okay to take a shower starting on 04/01 but avoid bathing or swimming for 2 weeks If you develop worsening pain, nausea/vomiting, fever or redness at the incision please seek care in ER Education Materials: After Hernia Surgery, Hernia Repair Open Dc, Preventing Surgical Site Infections Print Language: Swedish Stand Alone Forms: Maryjane Award Info., Patient Portal Info Letter Discharge Order Discharge Orders: Discharge (Routine); Ordered 03/30/25 Ordered By: Madiha Chester Results Results: Laboratory Laboratory results: results reviewed Results: Imaging CT scan - abdomen: report reviewed and image reviewed PROCEDURES: Procedure Date 03/30/25 Procedures Repair of umbilical hernia with mesh
--- NOTE | 2025-03-30 12:43 | SUR.PHASEII ---
pt able to tolerate oral fluids without difficulty swallowing or nausea/vomiting.
--- NOTE | 2025-03-30 13:32 | SUR.PHASEII ---
pt awake and alert, breathing unlabored on room air. v/s stable. pt dressing to abd cdi. pt able to ambulate to wheelchair with steady gait. d/c instructions given with son Parag in room using lang interpreter Devon lujan, all questions answered. pt d/c via wheelchair with all belongings.
== END 2025-03-30 13:32 | disposition home or self-care (01) ==
PROVIDERS: Anesthesiology; Absent Provider Surgery; Referring Provider Surgery; Visit Provider Surgery
PROC: (CPT 49591; principal; 2025-03-30 10:15)
DX: K42.9 Umbilical hernia without obstruction or gangrene (principal)
CPT/HCPCS: 49591; 36415; 80048; 84703; 85025; 85610; 85730; A4217; A4649; C1781; J0131; J0461; J0690; J1100; J1885; J2250; J2405; J2704; J3010; J3490; J7120; A9270

== ENCOUNTER 2025-04-11 13:22 | Outpatient (AMB) | payer MEDICAID, SELFPAY ==
[2025-04-11 13:35] VITALS: BP 132/78; PULSE 65; RESP 18; TEMP 36.3; O2SAT 97; BMI 37.6
--- NOTE | 2025-04-11 13:35 | GSCOFFNT_ITS ---
Vital Signs - [facility] 04/11/25 13:35 Height 1.45 m Height Method Stated Weight 79.124 kg Weight Measurement Method Standing Scale BMI 37.6 BP 132/78 H Blood Pressure Source Automatic Cuff Blood Pressure Location Right Upper Arm Position Sitting Respiration 18 Pulse 65 Pulse Source Monitor Temp 97.4 F Temp Source Temporal Artery Scan Pulse Oximetry (%) 97 Oxygen Delivery Method Room Air Med/Allergies Allergies & Medications Allergies No Known Allergies Allergy (Verified 04/11/25 13:37) Medication Reconciliation semaglutide (weight loss) 1.7 mg/0.75 mL subcutaneous pen injector (Wegovy) 1.7 mg subcut .weekly 03/24/25 [History Confirmed 04/11/25] docusate sodium 100 mg capsule (Colace) 100 mg PO QDAY PRN constipation #30 caps 03/30/25 [Rx Confirmed 04/11/25] oxycodone-acetaminophen 5 mg-325 mg tablet (Percocet) 1 tab PO Q4H PRN pain #20 tabs 03/30/25 [Rx Confirmed 04/11/25] MA Intake Visit Data Collection New Patient or Established: Established Patient (seen at [facility] within 3 years) Reason for Visit:: POST OP UMBILICAL HERNIA Pain Present Currently: Yes Pain Location: Abdomen Pain scale:: 2 Pain Scale Used: Sheppard-Moran/Numerical Agronomy Specialist Required: Yes PCP or OBGYN visit in last 3 months: Yes Hx Now: No Do You Feel Safe at Home: Yes Authorities Contacted: N/A Smoking Status Smoking Status: Never smoker Immunization / Flu Flu Vaccine in the Last 12 Months: No Flu Vaccine Exclusion Criteria: No Exclusion Criteria Past Medical History Past Medical History 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); 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 CARDIAC: Negative Cardiac Disorders, Congestive Heart Failure, Edema, Cellulitis or Varicose Veins RESPIRATORY: Negative Chronic Obstructive Pulmonary Disease (COPD), Pneumonia, Tuberculosis or Sleep Apnea GASTROINTESTINAL: Positive Gastrointestinal Disorders (Fatty liver), Gall Bladder Disease and Obesity; Negative Hepatitis GENITOURINARY: Negative Genitourinary Disorders or Renal Disease REPRODUCTIVE: Positive Previous Pregnancies (3, 2 children) MUSCULOSKELETAL: Negative Musculoskeletal Disorders ENDOCRINE: Negative Endocrine Disorders, Diabetes Mellitus Type 1 or Diabetes Mellitus Type 2 HEMATOLOGIC: Negative Blood Disorders OTHER HISTORY: Positive Chicken Pox and Measles; Negative Hospitalization, Autoimmune Disease, Shingles, Falls, Blood Transfusions, Blood Transfusion Reaction, Anesthesia Reactions, Chemotherapy, Radiation Therapy, MRSA, Mumps or Cancer Family History FAMILY HISTORY: Positive Family Cardiac Disorders; Negative Family Psychiatric Problems, Family Respiratory Disorders, Family Gastrointestinal Problems, Family Cancer, Family Surgery or Family Anesthesia Reaction Surgical History SURGICAL: Positive Abdominal Surgery and Section (x2); Negative Cardiac Surgery or Pacemaker Social History SMOKING STATUS: Smoking status: Never smoker ALCOHOL: Alcohol Intake: Never HOUSING: Housing: House Travel Risk Travel Hx Recent Travel: No HPI HPI Narrative Spoke to pt with in-person foreign language interpreter 39F presenting with symptomatic umbilical hernia s/p repair with mesh 03/30 here for planned follow up. Pt states she has been well overall, only sometimes needing to take percocet for pain. She denies any fever/nausea/vomiting, is eating well and having regular BMs. She saw her PCP recently who prescribed PO antibiotics with the goal of preventing infection as pt had a gauze in the umbilicus that she preferred not to remove herself ROS Review of Systems Systems Reviewed: All systems reviewed, normal except as documented Objective/Exam General General Appearance: alert, cooperative and well groomed Resp Respiratory exam: Absent respiratory distress Abdominal Abdominal exam: Present soft and incision (c/d/i, no erythema, no fluctuance or tenderness); Absent distention or tenderness Assessment & Plan Diagnosis / Problem List (1) Umbilical hernia: Status: Acute Assessment & Plan: 39F s/p umbilical hernia repair with mesh 03/30, gradually recovering Plan: F/u in 4 weeks Office Procedures GNS Level of Care Nursing/Assessment Patient Status: Established Patient Nursing Assessment/Reassesment: Medication Reconciliation, Update PMH in EMR and Vital Signs Coordination of Care: Complex Care and Chronic Disease 1-5, Education Complex Pt/Fam, Consent,records obtained, informed consent, Results/Orders obtained and Staff clarify orders Established Patient Charge Established Patient Point Assignment: 95 Established Patient Point Charge: EP Level 3 (80-115) Patient Portal Questionaires Social History Living Situation History Housing: House Tobacco History Smoking Status: Never smoker Alcohol History Alcohol Intake: Never Domestic Abuse History Do You Feel Safe at Home: Yes Review of Systems Report any current symptoms Only answer those that you have currently: Past Medical History Past Medical History Have you ever been diagnosed with any of the following: Neurological Problems Seizures: No Delgado's Palsy: Yes (Left) Cardiology Problems Congestive Heart Failure: No Edema: No Cellulitis: No Varicose Veins: No Respiratory Problems Chronic Obstructive Pulmonary Disease (COPD): No Pneumonia: No Tuberculosis: No Sleep Apnea: No Stomache/Intestinal Problems Hepatitis: No Gall Bladder Disease: Yes Obesity: Yes Genital/Urinary Problems Renal Disease: No Reproductive Problems Previous Pregnancies: Yes (3, 2 children) Endocrine Problems Diabetes Mellitus Type 1: No Diabetes Mellitus Type 2: No Other Problems Hospitalization: No Autoimmune Disease: No Shingles: No Falls: No Blood Transfusions: No Blood Transfusion Reaction: No Anesthesia Reactions: No Chemotherapy: No Radiation Therapy: No MRSA: No Chicken Pox: Yes Measles: Yes Mumps: No Cancer: No Surgical History Pacemaker: No
== END 2025-04-11 14:37 | disposition home or self-care (01) ==
LOC: HODSRG 13:22
PROVIDERS: Supervising Provider Surgery; Visit Provider Surgery
DX: Z48.815 Encounter for surgical aftercare following surgery on the digestive system (principal)
CPT/HCPCS: 99213; G0463

== ENCOUNTER 2025-04-24 03:57 | Inpatient (IN) | payer MEDICAID, SELFPAY ==
[2025-04-24] VITALS (20 sets, daily range): BP systolic 100–148; BP diastolic 51–92; PULSE 62–92; RESP 13–19; TEMP 36.1–37.2; O2SAT 94–100; BMI 35.5; BMI 34.8
--- NOTE | 2025-04-24 04:54 | XR_ITS ---
Examination: CT abdomen with intravenous contrast CT pelvis with intravenous contrast 2-D coronal reconstructions 2-D sagittal reconstructions Date and time of exam:April 24, 2025 at 0727 hours Comparison January 26, 2025 INDICATIONS: Fever umbilical pain today. CTDI: vol (mGy) 14.3 DLP: (mGycm) 382 Technique: Multiple axial sections of the abdomen and pelvis have been obtained. 64 slice high-resolution scanner used. 3 mm axial sections have been obtained, post intravenous injection 60 cc Isovue 370. 2-D sagittal, coronal reconstructions obtained. Low dose protocols were performed. One or more of the following dose reduction techniques were used; automated exposure control, adjustment of the mA and/or KV according to patient size, use of iterative reconstruction technique. Findings: No focal liver or splenic lesions Absent gallbladder No common bile duct stones No pancreatic mass No renal or ureteral calculi Fluid collection at the umbilicus, 6.2 x 4.3 x 7.0 cm No bowel obstruction No pelvic mass Bilateral intact L5-S1 4 mm central lumbar disc bulge IMPRESSION: 6.2 x 4.3 x 7.0 cm fluid collection at the umbilicus, consider abscess, hematoma, clinical correlation advised
--- NOTE | 2025-04-24 04:58 | PD.EDABDPN ---
ED Abdominal Pain RME/HPI General Chief Complaint: Abdominal Pain Stated complaint: UMBILICAL HERNIA SURG ON 03/30 ABD PAIN Time seen by provider: 04/24/25 04:53 Arrival date/time: 04/24/25 03:57 RME / HPI RME / HPI narrative: This section includes all my notes and documentations, including HPI, PE, and ED course. Sean Sy MD HPI: 39 y/o female with about 48-hour history of worsening abdominal pain and subjective fever last night. Had umbilical hernia repair here less than a month ago, on 03/30/2025. No other complaints. ROS: All negative except as documented in HPI. Physical Exam: General: Alert and oriented. In obvious severe pain. Eyes: Conjunctivae and lids clear. ENT: No nasal congestion. Neck: Supple. Heart: RRR. Lungs: No respiratory distress. Good air movement. No rhonchi, wheezing, rales. Abdomen: Soft with severe tenderness. Decreased bowel sounds. No distension. No rebound or guarding. Back: No CVA tenderness. Skin: Warm and dry. Neuro: Alert and oriented X 3. I ordered IV fluid, Zofran, Dilaudid, and diagnostic tests. At 6 AM on 04/24/2025, the care of the patient was transferred to Dr. Olivier. Sean Sy MD Related Data Home Medications ?Medication ?Instructions ?Recorded ?Confirmed semaglutide (weight loss) 1.7 1.7 mg subcut .weekly 03/24/25 04/11/25 mg/0.75 mL subcutaneous pen injector (Wegovy) Previous Rx's ?Medication ?Instructions ?Recorded docusate sodium 100 mg capsule 100 mg PO QDAY PRN constipation 03/30/25 (Colace) #30 caps oxycodone-acetaminophen 5 mg-325 1 tab PO Q4H PRN pain #20 tabs 03/30/25 mg tablet (Percocet) Allergies Allergy/AdvReac Type Severity Reaction Status Date / Time No Known Allergies Allergy Verified 04/24/25 04:05 Review of Systems Review of Systems Systems Reviewed: All systems reviewed, normal except as documented Past Medical History Past Medical History 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) GASTROINTESTINAL: Positive Gastrointestinal Disorders (Fatty liver), Gall Bladder Disease and Obesity REPRODUCTIVE: Positive Previous Pregnancies (3, 2 children) OTHER HISTORY: Positive Chicken Pox and Measles Family History FAMILY HISTORY: Positive Family Cardiac Disorders Surgical History SURGICAL: Positive Abdominal Surgery and Section (x2) ED Exam Narrative Physical exam: Refer to HPI above. Course Quality Measures none Orders Category Date Time Status CT Screening NOW Care 04/24/25 04:54 Active Saline [Insert IV] NOW Care 04/24/25 04:54 Active Straight [In and Out Catheter] X1 Care 04/24/25 04:[address] abdomen pelvis w con Stat Exams 04/24/25 04:54 Ordered Amylase Stat Lab 04/24/25 04:55 Ordered Bilirubin,Direct Stat Lab 04/24/25 04:55 Ordered Blood Culture (Lab) Stat Lab 04/24/25 04:56 Ordered CBC Stat Lab 04/24/25 04:56 Ordered CMP [Comprehensive Metabolic Panel] Stat Lab 04/24/25 04:55 Ordered CRP [C-Reactive Protein] Stat Lab 04/24/25 04:55 Ordered ESR [Sed Rate (ESR)] Stat Lab 04/24/25 04:56 Ordered HCG,Qualitative Serum Stat Lab 04/24/25 04:55 Ordered Lactate (Lactic Acid) Stat Lab 04/24/25 04:56 Ordered Lipase Stat Lab 04/24/25 04:55 Ordered Magnesium Stat Lab 04/24/25 04:55 Ordered Procalcitonin Stat Lab 04/24/25 04:56 Ordered UA, C/S IF [Urinalysis, C/S if Indicated] Stat Lab 04/24/25 04:56 Ordered HYDROmorphone INJ [Dilaudid Inj] Med 04/24/25 04:54 Pending 1 mg IVP X1 ONE Ondansetron Inj [Zofran Inj] Med 04/24/25 04:54 Discontinued 4 mg IVP X1 ONE Sodium Chloride 0.9% 1000 ml [Ns] 1,000 ml Med 04/24/25 04:54 Active IV 999 mls/hr Vital Signs Vital signs: Vital Signs Temperature 99 F 04/24/25 04:00 Pulse Rate 87 04/24/25 04:00 Respiratory Rate 19 04/24/25 04:00 Blood Pressure 122/76 04/24/25 04:00 Pulse Oximetry (%) 96 04/24/25 04:00 Oxygen Delivery Method Room Air 04/24/25 04:00 Abdominal Pain MDM MDM Narrative MDM Narrative:: Scribe Attestation: I, Aminata Gutierrez, am scribing for and in the presence of Dr. Sy. Provider Notation: Although this document has been carefully reviewed, there may still be some phonetic and other typographical errors.? These errors are purely grammatical due to imperfections in the software program and should not be construed in any way to? compromise the substance of the patient's medical care during this visit. 39 y/o female with about 48-hour history of worsening abdominal pain and subjective fever last night. Had umbilical hernia repair here less than a month ago, on 03/30/2025. No other complaints. Patient data External records reviewed:: [facility] previous records (Reviewed prior ED records from 08/18/24. Patient was seen for Foreign body in ear.) Clinical information provided by:: patient Social determinants that could affect healthcare access:: none Patient has the following chronic illnesses:: Gall Bladder Disease, Obesity, Fatty Liver How is presenting disease/condition affected by chronic disease/condition?: exacerbated by Evaluation data The following diagnostics were reviewed and interpreted by me:: lab results and radiology exam(s) Lab and/or radiology exams considered but not ordered:: None Interpretation Summary: Diagnostic tests are pending. Medications / Prescriptions Medications or Prescriptions considered but not ordered:: None Medication administrations:: Medication Administration History Hydromorphone HCl (Hydromorphone Inj 2 Mg/Ml Vial) 1 mg IVP X1 ONE Stop: 04/24/25 04:55 Sodium Chloride (Ns) 1,000 mls @ 999 mls/hr IV .Q1H1M ONE Stop: 04/24/25 05:54 Last Admin: 04/24/25 05:26 Dose: 999 mls/hr Documented By: Discontinued Medications Ondansetron HCl (Ondansetron Inj 2 Mg/Ml Inj 2 Ml) 4 mg IVP X1 ONE; Protocol Stop: 04/24/25 04:55 Dilaudid 1 mg, Zofran 4 mg, IVF. Consultations Consultation(s) initiated? (list below): No Diagnosis Differential diagnosis abdominal pain: abdominal pain, acute appendicitis, calculus of kidney, constipation, diverticulitis, gastroenteritis, pancreatitis, small bowel obstruction and other (Postsurgical infection/abscess/complication) Most likely diagnosis given after review of the tests above:: Abdominal pain Admission Indicated Admission indicated?: not indicated Explain why admission is indicated or not indicated:: Diagnostic tests are pending. Admission Request Was there a request for admission?: No Disposition Plan Disposition Plan: other (specify) (Signed-out to Dr. Olivier at 6 AM.) Discharge Plan Prescriptions/Referrals Prescriptions/Med Rec: No Action Wegovy 1.7 mg/0.75 mL pen injector 1.7 mg SUBCUT .weekly oxycodone-acetaminophen [Percocet] 5-325 mg tablet 1 tab PO Q4H MDD 6 tabs PRN (Reason: pain) Qty: 20 0RF Rx Instructions: Take 1 tablet every 4 to 6 hours as needed for severe pain docusate sodium [Colace] 100 mg capsule 100 mg PO QDAY PRN (Reason: constipation) Qty: 30 0RF Rx Instructions: Take as needed for constipation related to opioid use Problem List Clinical Impression: Abdominal pain Patient/Caregiver Discharge Instructions Print Language: Turkish
[2025-04-24] MEDS: SODIUM CHLORIDE 0.9% 1000 ML 1,000 ML 999 ML IV (05:26)
[2025-04-24 05:42] LABS: Lactate (Lactic Acid) 1.3 mMol/L (0.4-2.0)
[2025-04-24 05:47] LABS: Basophils # (Auto) 0.0 Thou/mm3 (0.0-0.2); Basophils % (Auto) 0 % (0-2.5); Eosinophils # (Auto) 0.2 Thou/mm3 (0.0-0.5); Eosinophils % (Auto) 2 % (0-10); Hematocrit 39.5 % (36.0-46.0); Hemoglobin 13.5 g/dL (12.0-16.0); Immature Granulocytes Auto 0.07 Thou/mm3 (0.00-0.00); Lymphocytes # (Auto) 2.9 Thou/mm3 (1.0-4.8); Lymphocytes % (Auto) 21 % (10-50); Mean Corpuscular HGB Conc 34.2 g/dl (31.0-37.0); Mean Corpuscular Hemoglobin 29.5 pg (25.0-35.0); Mean Corpuscular Volume 86 fL (80-100); Monocytes # (Auto) 1.1 Thou/mm3 (0.0-0.8); Monocytes % (Auto) 8 % (0-12); Neutrophils # (Auto) 9.4 Thou/mm3 (1.8-7.7); Neutrophils % (Auto) 68 % (37-80); Nucleated Red Blood Cell # 0.00 Thou/mm3 (0.00-0.00); Nucleated Red Blood Cell % 0 /100 WBC (0); Platelet Count 206 Thou/mm3 (140-440); RDW Standard Deviation 39.4 fL (36.4-46.3); Red Blood Count 4.58 Miln/mm3 (4.00-5.20); White Blood Count 13.8 Thou/mm3 (3.6-11.0)
[2025-04-24 05:51] LABS: Collection Type, Urine Clean Catch
[2025-04-24 05:57] LABS: Bacteria,Urine Rare; Bilirubin,Urine Negative (Negative); Blood,Urine Negative (Negative); Clarity,Urine Turbid (Clear/Hazy); Color,Urine Yellow (Lt Yel-Yel); Culture Indicated,Urine Not Indicated; Glucose, Urine Negative (Negative); Ketones,Urine Trace (Negative); Leukocyte Esterase,Urine Negative (Negative); Nitrite,Urine Negative (Negative); PH,Urine 6.5 (5.0-7.0); Protein,Urine 1+ (Neg - Trace); RBC,Urine 1 /hpf (0-3); Specific Gravity,Urine 1.042 (1.001-1.035); Squamous Epithelial Cell,Urine 13 /hpf (0-5); Urobilinogen,Urine 2.0 mg/dL (0.0-1.0); WBC,Urine 5 /hpf (0-5)
[2025-04-24 06:08] LABS: HCG,Qualitative Serum Negative
[2025-04-24 06:13] LABS: Sed Rate (ESR) 35 mm/hr (0-20)
[2025-04-24] MEDS: ONDANSETRON INJ 2 MG/ML INJ 2 ML 4 MG IVP ×3 (06:15→18:18)
[2025-04-24] MEDS: HYDROmorphone INJ 2 MG/ML VIAL 1 MG IVP (06:18)
[2025-04-24 06:37] LABS: Alanine Aminotransferase 48 U/L (10-49); Albumin, Serum 4.1 gm/dL (3.5-5.0); Albumin/Globulin Ratio 1.6 (1.2-2.2); Alkaline Phosphatase 97 U/L (46-116); Amylase 60 U/L (30-118); Anion Gap 8 (7-16); Aspartate Amino Transferase 50 U/L (0-34); BUN/Creatinine Ratio 13 Ratio (12-20); Bilirubin,Direct 0.3 mg/dL (0.0-0.3); Bilirubin,Total 1.0 mg/dL (0.3-1.2); Blood Urea Nitrogen 9 mg/dL (9-23); C-Reactive Protein 4.9 mg/dL (0.0-0.9); Calcium 9.0 mg/dL (8.3-10.6); Calcium (Corrected) 9.0 mg/dL (8.5-10.1); Carbon Dioxide 28.4 mMol/L (20.0-31.0); Chloride 102 mMol/L (98-107); Creatinine (Component) 0.7 mg/dL (0.6-1.3); Estimated Creatinine Clearance 96.6 mL/min (>60); Globulin 2.5 gm/dL (2.3-3.5); Glucose 131 mg/dL (74-106); Lipase 33 U/L (12-53); Magnesium 1.8 mg/dL (1.6-2.6); Osmolality,Calculated 276 (275-295); Potassium 4.3 mMol/L (3.4-5.1); Procalcitonin 0.16 ng/ml (0.0-0.49); Sodium 138 mMol/L (136-145); Total Protein 6.6 gm/dL (5.7-8.2); eGFR > 60 See Note
--- NOTE | 2025-04-24 06:45 | PD.EDADDENDU ---
Emergency Room Addendum Addendum Narrative: 0600: Care assumed from Dr. Sy, the previous shift emergency physician. Past medical, surgical, social and family history reviewed. Vitals and home medications reviewed. I will assume the care of the patient at this time, pending CT and final disposition. Please refer to the emergency department record for history and examination from initial visit.?The following addendum documentation note is intended to reflect any pending information, findings, or radiology results not included in the patient?s initial chart. 0848: I spoke with general surgeon Dr. Chester. Discussed patients PMHx, HPI, ED course, exam findings, labs, and radiology results. She accepts the patient for admission to surgical services. RADIOLOGY Ordering Physician: Sean Sy MD Date of Service: 04/24/25 Procedure(s): CT abdomen pelvis w con Accession Number(s): [id number] cc: Sean Sy MD; Roni Perez MD; NO PRIMARY/FAMILY,PHYSICIAN~ Examination: CT abdomen with intravenous contrast CT pelvis with intravenous contrast 2-D coronal reconstructions 2-D sagittal reconstructions Date and time of exam:April 24, 2025 at 0727 hours Comparison January 26, 2025 INDICATIONS: Fever umbilical pain today. CTDI: vol (mGy) 14.3 DLP: (mGycm) 382 Technique: Multiple axial sections of the abdomen and pelvis have been obtained. 64 slice high-resolution scanner used. 3 mm axial sections have been obtained, post intravenous injection 60 cc Isovue 370. 2-D sagittal, coronal reconstructions obtained. Low dose protocols were performed. One or more of the following dose reduction techniques were used; automated exposure control, adjustment of the mA and/or KV according to patient size, use of iterative reconstruction technique. Findings: No focal liver or splenic lesions Absent gallbladder No common bile duct stones No pancreatic mass No renal or ureteral calculi Fluid collection at the umbilicus, 6.2 x 4.3 x 7.0 cm No bowel obstruction No pelvic mass Bilateral intact L5-S1 4 mm central lumbar disc bulge IMPRESSION: 6.2 x 4.3 x 7.0 cm fluid collection at the umbilicus, consider abscess, hematoma, clinical correlation advised Dictated By: Roni Perez MD Signed By: <Electronically signed by Roni Perez MD in OV> 04/24/25 0747
--- NOTE | 2025-04-24 07:31 | PC.NURSE ---
Pt lying down in bed resting with eyes closed. Pt stated that she is feeling better. Pain level down currently at 4/10.
[2025-04-24] MEDS: FAMOTIDINE INJ 10 MG/ML VIAL 2 ML 20 MG IVP (09:15)
[2025-04-24] MEDS: PIPER/TAZO 3.375 GM PREMIX 3.375 GM/50 ML BAG IV ×2 (09:20→21:04)
[2025-04-24] MEDS: SODIUM CHLORIDE 0.9% 1000 ML 1,000 ML 125 ML IV (09:52)
--- NOTE | 2025-04-24 09:57 | PC.CC ---
Patient is a 39 year-old female who presents to the hospital for postoperative abscess. Gabriella HARDY made [id number] contact with patient. ASW introduced self, role, and reason for visit.?Patient appeared alert and oriented to self, location, and situation.?Patient was pleasant and engaged in initial assessment. Patient confirmed information on demographics and reports to living at home with her , Kavon Clark . Per patient, the event she is unable to make her own medical decisions her medical decision maker is her . Patient disclosed that she is able to ambulate independently and complete her own ADLs. Patient does not require the use of any DME. Patient receives primary care at [facility] on the [address] and also get her prescription medication filled by there pharmacy. Upon discharge the patient plans to return home. director field services to follow up with any discharge needs.
--- NOTE | 2025-04-24 12:41 | PD.SURHP ---
HPI Date of Admission 04/24/25 09:01 HPI 39F s/p umbilical hernia repair with mesh 03/30 who presented to ER with abdominal pain and fever. Patient reports pain began yesterday, worse than the pain she had had previously, not improved with medication. Last night she also noted a fever prompting her to visit ER where she underwent CT showing a fluid collection deep to the umbilicus up to 7 cm Review of Systems Review of Systems ROS Unobtainable: All systems reviewed & no additional complaints except as documented Meds Home Medications and Allergies Home Medications ?Medication ?Instructions ?Recorded ?Confirmed ?Type semaglutide (weight loss) 1.7 1.7 mg subcut .weekly 03/24/25 04/11/25 History mg/0.75 mL subcutaneous pen injector (WegovFiberSensing) Allergies Allergy/AdvReac Type Severity Reaction Status Date / Time No Known Allergies Allergy Verified 04/24/25 04:05 Exam Vital Signs Temp Pulse Resp BP Pulse Ox O2 Del Method 98.4 F 84 17 148/72 H 96 Room Air 04/24/25 11:55 04/24/25 11:55 04/24/25 11:55 04/24/25 11:55 04/24/25 11:55 04/24/25 11:55 Constitutional Constitutional: no acute distress Routine Respiratory Exam Respiratory: Present no resp distress Routine Abdominal Exam Abdominal: Present soft, tenderness (Significant tenderness at the umbilical region) and wound (Infraumbilical incision intact); Absent distended, rebound or guarding Results Results: Laboratory Laboratory results: results reviewed Results: Imaging CT scan - abdomen: report reviewed and image reviewed Assessment & Plan Plan 39F status post umbilical hernia repair with mesh on 03/30, presenting with signs of a postoperative abscess. I explained that given the size of the fluid collection, it would be best to drain the abscess surgically and that she will need to perform daily packing changes likely for a matter of weeks. All questions were answered and patient is agreeable to proceeding Quality Measures Quality Measures none
--- NOTE | 2025-04-24 15:22 | ESOP_ITS ---
Date of Procedure 04/24/25 Pre Op Diagnosis Umbilical abscess Post Op Diagnosis Same Procedure Incision and drainage of umbilical abscess Findings Murky brown fluid Procedure Description After discussion of risk and benefits, patient was brought to the operating room, SCDs were placed and MAC anesthesia was induced. She was prepped and dr aped in usual sterile fashion and received preoperative antibiotics. After timeout the existing infraumbilical incision was reopened with a #15 blade and the tissues were dissected with a hemostat. On CT the abscess was noted to be approximately 2 cm deep to the skin and it was ultimately encountered at the right superior aspect of the incision with return of approximately 25 cc of murky brown fluid from which a culture was taken. After the fluid was drained there was noted to be approximately the 1 x 1 cm defect which appeared to enter into the preperitoneal space, this was closed with two 0 ethibond interrupted sutures. The wound was irrigated with Betadine and hydrogen peroxide and saline and then packed with moistened gauze. It was covered with gauze and an abdominal pad which was secured with Medipore tape. Patient was awoken and brought to PACU in stable condition Pathology / specimen Other (Wound culture) Pathology comment: Abdominal wound culture Estimated Blood Loss 10 Surgeon Madiha Chester MD Surgical Staff Operation Date: 04/24/25 15:00 Case Staff Anesthesiologist: Teofilo Freitas RN First Assistant: Lupis Hou
--- NOTE | 2025-04-24 15:33 | SUR.PHASEI ---
1521 PATIENT RECIVED INTO BAY 01, REPORT RECEIVED FROM LAKESHIA WANG AND DR TANNER. VS STABLE NO S/S OF DISTRESS NOTED. NASAL AIRWAY IN PLACE. DRESSING TO ABDOMEN IS 4X4, AND ABD HYPAFIX TAPE, WHICH IS CLEAN DRY AND INTACT.
--- NOTE | 2025-04-24 15:41 | SUR.PHASEI ---
1536 NASAL AIRWAY REMOVED.
--- NOTE | 2025-04-24 16:11 | SUR.PHASEI ---
1610 REPORT CALLED TO NAVNEET RN, PATIENT TRANSPORTED TO ROOM 357 IN STABLE CONDITION.
[2025-04-24] MEDS: MELATONIN 3 MG TABLET PO (21:05)
[2025-04-25] VITALS (10 sets, daily range): BP systolic 121–140; BP diastolic 61–72; PULSE 67–94; RESP 17–99; TEMP 36.2–37; O2SAT 94–97
[2025-04-25] MEDS: ONDANSETRON INJ 2 MG/ML INJ 2 ML 4 MG IVP ×2 (00:39→07:34)
[2025-04-25] MEDS: PIPER/TAZO 3.375 GM PREMIX 3.375 GM/50 ML BAG IV ×3 (05:03→21:04)
--- NOTE | 2025-04-25 09:05 | PC.NURSE ---
Patient ambulated x1 around hallway, FELIPE JACKSON.
[2025-04-25] MEDS: KETOROLAC INJ 30 MG/ML VIAL 15 MG IVP (11:16)
--- NOTE | 2025-04-25 14:29 | ESPR_ITS ---
Documentation for date of: 04/25/25 Subjective Subjective Brief History: 39F s/p umbilical hernia repair with mesh 03/30 who presented to ER with abdominal pain and fever. Patient reports pain began yesterday, worse than the pain she had had previously, not improved with medication. 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 Pain well controlled, remaining afebrile Exam Vital Signs Temp Pulse Resp BP Pulse Ox O2 Del Method O2 Flow Rate 97.2 F 67 17 121/65 97 Room Air 3 04/25/25 12:00 04/25/25 12:00 04/25/25 12:04/25/25 12:04/25/25 12:00 04/25/25 12:04/24/25 15:40 Constitutional Constitutional: no acute distress Routine Respiratory Exam Respiratory: Present no resp distress Routine Abdominal Exam Abdominal: Present soft and surgical scars (infraumbilical incision with no surrounding erythema, minimal drainage on gauze); Absent tenderness or distended Results Results: Laboratory Laboratory results: results reviewed Results: Imaging CT scan - abdomen: report reviewed and image reviewed Assessment & Plan Plan 39F s/p umbilical hernia repair with mesh on 03/30, presenting with signs of a postoperative abscess s/p I&D 04/24, gradually recovering Pt and were instructed on packing changes today, would like another instruction before dc Advance to regular diet DCP for tomorrow PROCEDURES: Procedures Incision and drainage of umbilical abscess
--- NOTE | 2025-04-25 16:12 | PC.SS ---
Addendum entered by Rosa Birmingham 04/25/25 16:14: Wrong note Original Note: SS follow up note; BOBBY pending, Blood pressure and Blood sugars being monitored. Patient will discharge home when medically cleared.
--- NOTE | 2025-04-25 16:15 | PC.SS ---
SS follow up note; Advancing diet, patient will discharge home tomorrow, per Dr. De Leon note.
[2025-04-25] MEDS: MELATONIN 3 MG TABLET PO (21:02)
--- NOTE | 2025-04-25 21:07 | PC.NURSE ---
at bedside, dressing changed demonstrated, expressed full understanding.
[2025-04-26 04:00] VITALS: BP 116/72; PULSE 66; RESP 17; TEMP 36.1; O2SAT 95
[2025-04-26] MEDS: PIPER/TAZO 3.375 GM PREMIX 3.375 GM/50 ML BAG IV ×2 (05:20→13:48)
[2025-04-26 06:37] VITALS: PULSE 67; RESP 18; RESP 93
[2025-04-26 08:00] VITALS: BP 126/74; PULSE 65; RESP 17; TEMP 36.2; O2SAT 98
--- NOTE | 2025-04-26 08:39 | PD.SURPROG ---
Documentation for date of: 04/26/25 Subjective Subjective Brief History: 39F s/p umbilical hernia repair with mesh 03/30 who presented to ER with abdominal pain and fever. Patient reports pain began yesterday, worse than the pain she had had previously, not improved with medication. Last night she also noted a fever prompting her to visit ER where she underwent CT showing a fluid collection deep to the umbilicus up to 7 cm Narrative: Pain controlled with oral medications, no nausea, tolerating regular diet and had a BM, urinating without difficulty remaining afebrile Exam Vital Signs Temp Pulse Resp BP Pulse Ox O2 Del Method O2 Flow Rate 97.2 F 65 17 126/74 98 Room Air 3 04/26/25 08:00 04/26/25 08:00 04/26/25 08:00 04/26/25 08:00 04/26/25 08:00 04/26/25 08:00 04/24/25 15:40 Constitutional Constitutional: no acute distress Routine Respiratory Exam Respiratory: Present no resp distress Routine Abdominal Exam Abdominal: Present soft; Absent tenderness or distended Results Results: Laboratory Laboratory results: results reviewed Assessment & Plan Plan 39F s/p umbilical hernia repair with mesh on 03/30, presenting with signs of a postoperative abscess s/p I&D 04/24, recovering well overall DC today with p.o. antibiotics Will follow-up on 05/02 PROCEDURES: Procedures Incision and drainage of umbilical abscess
--- NOTE | 2025-04-26 08:40 | ESDS_ITS ---
Planned Discharge Date 04/26/25 DS: Providers Provider Date of admission: 04/24/25 09:01 Primary care physician: Physician No Primary/Family Admitting Provider: Madiha Chester MD Attending Provider on Admission: Madiha Chester MD Consults: 04/25/25 10:01 Referral Wound Care Routine Comment: S/P I&D umbilical abscess 04/25/25 14:51 Referral OP Wound Healing Dept Routine Comment: Umbilicus surgical incision 04/25/25 14:52 Referral Nutritional Services Routine Comment: Wounds Attending Provider on DC: Madiha Chester MD Discharging Provider: Madiha Chester MD Diagnosis Discharge Diagnosis (1) Abdominal abscess: Status: Acute Problem List Completed Was Problem List Reviewed/Reconciled?: Yes Exam Vital Signs Temp Pulse Resp BP Pulse Ox O2 Del Method O2 Flow Rate 97.2 F 65 17 126/74 98 Room Air 3 04/26/25 08:00 04/26/25 08:00 04/26/25 08:00 04/26/25 08:00 04/26/25 08:00 04/26/25 08:00 04/24/25 15:40 Constitutional Constitutional: no acute distress Routine Respiratory Exam Respiratory: Present no resp distress Discharge Plan Plan Patient Disposition: HOME (Self Care) Care Plan Goals: 1) Follow up with Dr. Chester next week. Call [phone] for appointment 2) Follow up at [facility], [address] [place] [address]. Call [phone] for appointment 3) Avoid heavy lifting over 10-15 pounds for 6 weeks 4) Wound care to abdomen: Shower and gently remove dressing with packing while in the shower. Dry off, get dressed than change dressing once a day -Wash hands with soap and water -Gently cleanse wound with normal saline and pat dry with gauze. -Wash hands again -Gently pack wound with strip packing and cover with dry dressing or gauze and tape. If active bleeding occurs, apply tight dressing and return to MD or ER. ? Notify primary doctor or return to Emergency Room if any of the f ollowing: ? Fever above 100.6? F. ? Increased pain ? Increase swelling ? Red streaks around your wound ? Drainage becomes foul smelling or changes color ? The wound is larger or deeper ? The wound looks dried out or dark ? Bleeding that does not stop with holding pressure Prescriptions/Referrals Prescriptions/Med Rec: New amoxicillin-pot clavulanate [Augmentin] 500-125 mg tablet 1 tab PO Q12H Qty: 6 0RF Rx Instructions: Take 1 tablet every 12 hours until completed oxycodone-acetaminophen [Percocet] 5-325 mg tablet 1 tab PO Q6H MDD 4 tabs PRN (Reason: pain) Qty: 20 0RF No Action Wegovy 1.7 mg/0.75 mL pen injector 1.7 mg SUBCUT .weekly Referrals: Madiha Chester MD [Physician] - (You will receive a phone call to confirm a follow-up appointment with me on 05/02) No Primary/Family,Physician [Primary Care Provider] - Patient/Caregiver Discharge Instructions Education Materials: Nutrition for Wound Healing, Changing Dressing Iban Fine ischarge Instructions Wound ..., Preventing Surgical Site Infections Print Language: Bulgarian Stand Alone Forms: Maryjane Award Info., Patient Portal Info Letter Results Results: Laboratory Laboratory results: results reviewed Results: Imaging CT scan - abdomen: report reviewed and image reviewed PROCEDURES: Procedure Date 04/26/25 Procedures Incision and drainage of umbilical abscess
[2025-04-26 12:00] VITALS: BP 140/86; PULSE 59; RESP 18; TEMP 36.4; O2SAT 97
[2025-04-26 16:00] VITALS: BP 140/86; PULSE 59; RESP 18; TEMP 36.4; O2SAT 97
== END 2025-04-26 18:35 | disposition home or self-care (01) | DRG 721 ==
LOC: SERX 06:46 → SERHOLD 09:07 → S3NX 16:21
PROVIDERS: Emergency Medicine; Admitting Provider Surgery; Emergency Provider Family Medicine; Visit Provider Surgery
PROC: 0W9F3ZX Drainage of Abdominal Wall, Percutaneous Approach, Diagnostic (ICD-10-PCS; principal; 2025-04-24 15:00)
DX: T81.43XA Infection following a procedure, organ and space surgical site, initial encounter (principal); L02.216 Cutaneous abscess of umbilicus
CPT/HCPCS: 36415; 74177; 80053; 81001; 82150; 82248; 83605; 83690; 83735; 84145; 84703; 85025; 85652; 86140; 87040; 87070; 87075; 87205; 96361; 96365; 96375; 96376; 99283; A4217; A4649; J0694; J1171; J1885; J2405; J2543; J2704; J3010; J3490; J7030; Q9967; A9270

== ENCOUNTER 2025-05-02 13:02 | Outpatient (AMB) | payer MEDICAID, SELFPAY ==
--- NOTE | 2025-05-02 13:11 | GSCOFFNT_ITS ---
[facility] - [facility] 05/02/25 13:15 Height 1.5 m Height Method Stated Weight 79.435 kg Weight Measurement Method Standing Scale BMI 35.3 BP 151/96 H Blood Pressure Source Automatic Cuff Blood Pressure Location Left Upper Arm Position Sitting Respiration 18 Pulse 65 Pulse Source Monitor Temp 97.7 F Temp Source Temporal Artery Scan Pulse Oximetry (%) 98 Oxygen Delivery Method Room Air Med/Allergies Allergies & Medications Allergies No Known Allergies Allergy (Verified 05/02/25 13:16) Medication Reconciliation semaglutide (weight loss) 1.7 mg/0.75 mL subcutaneous pen injector (Wegovy) 1.7 mg subcut .weekly 03/24/25 [History Confirmed 05/02/25] amoxicillin 500 mg-potassium clavulanate 125 mg tablet (Augmentin) 1 tab PO Q12H #6 tabs 04/26/25 [Rx Confirmed 05/02/25] oxycodone-acetaminophen 5 mg-325 mg tablet (Percocet) 1 tab PO Q6H PRN pain #20 tabs 04/26/25 [Rx Confirmed 05/02/25] MA Intake Visit Data Collection New Patient or Established: Established Patient (seen at [facility] within 3 years) Seen by Clinical Staff ONLY (RN/MA): No Pain Present Currently: Yes Pain Location: Abdomen Pain scale:: 3 Pain Scale Used: Sheppard-Moran/Numerical Share Dairy Farmer Required: Yes PCP or OBGYN visit in last 3 months: Yes Hx Now: No Do You Feel Safe at Home: Yes Authorities Contacted: N/A Smoking Status Smoking Status: Never smoker Immunization / Flu Flu Vaccine in the Last 12 Months: Yes Flu Vaccine Exclusion Criteria: Already Received Past Medical History Past Medical History 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; 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 CARDIAC: Negative Cardiac Disorders, Congestive Heart Failure, Edema, Cellulitis or Varicose Veins RESPIRATORY: Negative Chronic Obstructive Pulmonary Disease (COPD), Asthma, Pneumonia, Tuberculosis or Sleep Apnea GASTROINTESTINAL: Positive Gastrointestinal Disorders, Gall Bladder Disease and Obesity; Negative Hepatitis GENITOURINARY: Negative Genitourinary Disorders or Renal Disease REPRODUCTIVE: Positive Previous Pregnancies ENDOCRINE: Negative Endocrine Disorders, Diabetes Mellitus Type 1 or Diabetes Mellitus Type 2 HEMATOLOGIC: Negative Blood Disorders or Sickle Cell Disease OTHER HISTORY: Positive Chicken Pox and Measles; Negative Hospitalization, Autoimmune Disease, Shingles, Falls, Blood Transfusions, Blood Transfusion Reaction, Anesthesia Reactions, Chemotherapy, Radiation Therapy, MRSA, Mumps or Cancer Family History FAMILY HISTORY: Positive Family Cardiac Disorders; Negative Family Psychiatric Problems, Family Respiratory Disorders, Family Gastrointestinal Problems, Family Cancer, Family Surgery or Family Anesthesia Reaction Surgical History SURGICAL: Positive Abdominal Surgery and Section; Negative Cardiac Surgery or Pacemaker Social History SMOKING STATUS: Smoking status: Never smoker ALCOHOL: Alcohol Intake: Never HOUSING: Housing: Apartment LIVES WITH: Lives With: Children and Spouse HPI HPI Narrative Spoke to pt with in-person facilities specialist 39F s/p umbilical hernia repair with mesh on 03/30, presenting with signs of a postoperative abscess s/p I&D 04/24, here for planned follow up. Pt states she is feeling better lately, now only taking pain medications before dressing changes but yesterday she did not take any. She denies any nausea/vomiting or fever, is eating well and having regular bladder and bowel function. Her is changing her packing once daily and her dressings are not soaking through ROS Review of Systems Systems Reviewed: All systems reviewed, normal except as documented Objective/Exam General General Appearance: alert, cooperative and well groomed Resp Respiratory exam: Absent respiratory distress Abdominal Abdominal exam: Present soft and incision (no erythema, no fluctuance or tenderness, packing replaced ); Absent distention or tenderness Results Abscess cx negative Assessment & Plan Diagnosis / Problem List (1) Abdominal abscess: Status: Acute Assessment & Plan: 39F s/p umbilical hernia repair with mesh on 03/30, presenting with signs of a postoperative abscess s/p I&D 04/24, recovering well overall. I advised pt to continue daily packing changes, the wound is noticeably suzan and I will follow up again next week Office Procedures GNS Level of Care Nursing/Assessment Patient Status: Established Patient Nursing Assessment/Reassesment: Medication Reconciliation, Update PMH in EMR and Vital Signs Coordination of Care: Complex Care and Chronic Disease 1-5, Consent,records obtained, informed consent, Education Simp Pt/Fam, Results/Orders obtained and Staff clarify orders Special Needs: Language special needs Established Patient Charge Established Patient Point Assignment: 90 Established Patient Point Charge: Level 3 (80-115) Patient Portal Questionaires Social History Living Situation History Housing: Apartment Tobacco History Smoking Status: Never smoker Alcohol History Alcohol Intake: Never Domestic Abuse History Do You Feel Safe at Home: Yes Review of Systems Report any current symptoms Only answer those that you have currently: Past Medical History Past Medical History Have you ever been diagnosed with any of the following: Neurological Problems Seizures: No Delgado's Palsy: Yes Cardiology Problems Congestive Heart Failure: No Edema: No Cellulitis: No Varicose Veins: No Respiratory Problems Chronic Obstructive Pulmonary Disease (COPD): No Asthma: No Pneumonia: No Tuberculosis: No Sleep Apnea: No Stomache/Intestinal Problems Hepatitis: No Gall Bladder Disease: Yes Obesity: Yes Genital/Urinary Problems Renal Disease: No Reproductive Problems Previous Pregnancies: Yes Endocrine Problems Diabetes Mellitus Type 1: No Diabetes Mellitus Type 2: No Blood Problems Sickle Cell Disease: No Other Problems Hospitalization: No Autoimmune Disease: No Shingles: No Falls: No Blood Transfusions: No Blood Transfusion Reaction: No Anesthesia Reactions: No Chemotherapy: No Radiation Therapy: No MRSA: No Chicken Pox: Yes Measles: Yes Mumps: No Cancer: No Surgical History Pacemaker: No
[2025-05-02 13:15] VITALS: BP 151/96; PULSE 65; RESP 18; TEMP 36.5; O2SAT 98; BMI 35.3
== END 2025-05-02 13:34 | disposition home or self-care (01) ==
LOC: HODSRG 13:02
PROVIDERS: Supervising Provider Surgery; Visit Provider Surgery
DX: Z48.817 Encounter for surgical aftercare following surgery on the skin and subcutaneous tissue (principal)
CPT/HCPCS: 99213; G0463

== ENCOUNTER → 2025-05-04 | Outpatient (CLI) | payer MEDICAID, SELFPAY | END | disposition home or self-care (01) | LOC: SWHD 12:58 | PROVIDERS: Referring Provider Surgery; Visit Provider Student in an Organized Health Care Education/Training Program | DX: L02.216 Cutaneous abscess of umbilicus (principal); S31.105A Unspecified open wound of abdominal wall, periumbilic region without penetration into peritoneal cavity, initial encounter; X58.XXXA Exposure to other specified factors, initial encounter; T81.89XA Other complications of procedures, not elsewhere classified, initial encounter; G51.0 Bell's palsy; R73.03 Prediabetes; E66.9 Obesity, unspecified | CPT/HCPCS: 17250; 99213; A9270; G0463 ==

== ENCOUNTER 2025-05-09 10:47 | Outpatient (AMB) | payer MEDICAID, SELFPAY ==
--- NOTE | 2025-05-09 10:55 | GSCOFFNT_ITS ---
Vital Signs - [facility] 05/09/25 10:58 Height 1.5 m Height Method Measured Weight 80.541 kg Weight Measurement Method Standing Scale BMI 35.8 BP 148/83 H Blood Pressure Source Automatic Cuff Blood Pressure Location Left Upper Arm Position Sitting Respiration 18 Pulse 66 Pulse Source Monitor Temp 97.3 F Temp Source Temporal Artery Scan Pulse Oximetry (%) 98 Oxygen Delivery Method Room Air Med/Allergies Allergies & Medications Allergies No Known Allergies Allergy (Verified 05/09/25 10:59) Medication Reconciliation semaglutide (weight loss) 1.7 mg/0.75 mL subcutaneous pen injector (Wegovy) 1.7 mg subcut .weekly 03/24/25 [History Confirmed 05/09/25] amoxicillin 500 mg-potassium clavulanate 125 mg tablet (Augmentin) 1 tab PO Q12H #6 tabs 04/26/25 [Rx Confirmed 05/09/25] oxycodone-acetaminophen 5 mg-325 mg tablet (Percocet) 1 tab PO Q6H PRN pain #20 tabs 04/26/25 [Rx Confirmed 05/09/25] MA Intake Visit Data Collection New Patient or Established: Established Patient (seen at [facility] within 3 years) Seen by Clinical Staff ONLY (RN/MA): No Reason for Visit:: 1 WEEK F/U Pain Present Currently: No Pain Scale Used: Sheppard-Moran/Numerical Supervisor Weaving Required: Yes PCP or OBGYN visit in last 3 months: Yes Hx Now: No Do You Feel Safe at Home: Yes Authorities Contacted: N/A Smoking Status Smoking Status: Never smoker Immunization / Flu Flu Vaccine in the Last 12 Months: Yes Flu Vaccine Exclusion Criteria: Already Received Past Medical History Past Medical History 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; 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 CARDIAC: Negative Cardiac Disorders, Congestive Heart Failure, Edema, Cellulitis or Varicose Veins RESPIRATORY: Negative Chronic Obstructive Pulmonary Disease (COPD), Asthma, Pneumonia, Tuberculosis or Sleep Apnea GASTROINTESTINAL: Positive Gastrointestinal Disorders, Gall Bladder Disease and Obesity; Negative Hepatitis GENITOURINARY: Negative Genitourinary Disorders or Renal Disease REPRODUCTIVE: Positive Previous Pregnancies ENDOCRINE: Negative Endocrine Disorders, Diabetes Mellitus Type 1 or Diabetes Mellitus Type 2 HEMATOLOGIC: Negative Blood Disorders or Sickle Cell Disease OTHER HISTORY: Positive Chicken Pox and Measles; Negative Hospitalization, Autoimmune Disease, Shingles, Falls, Blood Transfusions, Blood Transfusion Reaction, Anesthesia Reactions, Chemotherapy, Radiation Therapy, MRSA, Mumps or Cancer Family History FAMILY HISTORY: Positive Family Cardiac Disorders; Negative Family Psychiatric Problems, Family Respiratory Disorders, Family Gastrointestinal Problems, Family Cancer, Family Surgery or Family Anesthesia Reaction Surgical History SURGICAL: Positive Abdominal Surgery and Section; Negative Cardiac Surgery or Pacemaker Social History SMOKING STATUS: Smoking status: Never smoker ALCOHOL: Alcohol Intake: Never HOUSING: Housing: Apartment LIVES WITH: Lives With: Children and Spouse HPI HPI Narrative Spoke to pt with in-person historical interpreter 39F s/p umbilical hernia repair with mesh on 03/30, presenting with signs of a postoperative abscess s/p I&D 04/24, here for planned follow up. Patient states she feels well overall, is not currently needing any medications for pain, is continuing to have her pack the wound once daily. She does note a s light pain on the right side of the umbilicus but no fever, she is eating well and having regular bladder and bowel function ROS Review of Systems Systems Reviewed: All systems reviewed, normal except as documented Objective/Exam General General Appearance: alert, cooperative and well groomed Resp Respiratory exam: Absent respiratory distress Abdominal Abdominal exam: Present soft and incision (Packing replaced to open incision, there is no erythema, no fluctuance or tenderness); Absent distention or tenderness Assessment & Plan Diagnosis / Problem List (1) Abdominal abscess: Status: Acute Assessment & Plan: 39F s/p umbilical hernia repair with mesh on 03/30, presenting with signs of a postoperative abscess s/p I&D 04/24, recovering well overall Plan: Continue daily packing changes Follow-up next week Office Procedures GNS Level of Care Nursing/Assessment Patient Status: Established Patient Nursing Assessment/Reassesment: Medication Reconciliation, Update PMH in EMR and Vital Signs Coordination of Care: Complex Care and Chronic Disease 1-5, Consent,records obtained, informed consent, Education Simp Pt/Fam, Results/Orders obtained and Staff clarify orders Special Needs: Language special needs Established Patient Charge Established Patient Point Assignment: 90 Established Patient Point Charge: Level 3 (80-115) Patient Portal Questionaires Social History Living Situation History Housing: Apartment Tobacco History Smoking Status: Never smoker Alcohol History Alcohol Intake: Never Domestic Abuse History Do You Feel Safe at Home: Yes Review of Systems Report any current symptoms Only answer those that you have currently: Past Medical History Past Medical History Have you ever been diagnosed with any of the following: Neurological Problems Seizures: No Delgado's Palsy: Yes Cardiology Problems Congestive Heart Failure: No Edema: No Cellulitis: No Varicose Veins: No Respiratory Problems Chronic Obstructive Pulmonary Disease (COPD): No Asthma: No Pneumonia: No Tuberculosis: No Sleep Apnea: No Stomache/Intestinal Problems Hepatitis: No Gall Bladder Disease: Yes Obesity: Yes Genital/Urinary Problems Renal Disease: No Reproductive Problems Previous Pregnancies: Yes Endocrine Problems Diabetes Mellitus Type 1: No Diabetes Mellitus Type 2: No Blood Problems Sickle Cell Disease: No Other Problems Hospitalization: No Autoimmune Disease: No Shingles: No Falls: No Blood Transfusions: No Blood Transfusion Reaction: No Anesthesia Reactions: No Chemotherapy: No Radiation Therapy: No MRSA: No Chicken Pox: Yes Measles: Yes Mumps: No Cancer: No Surgical History Pacemaker: No
[2025-05-09 10:58] VITALS: BP 148/83; PULSE 66; RESP 18; TEMP 36.3; O2SAT 98; BMI 35.8
== END 2025-05-09 11:45 | disposition home or self-care (01) ==
PROVIDERS: Supervising Provider Surgery; Visit Provider Surgery
DX: Z48.817 Encounter for surgical aftercare following surgery on the skin and subcutaneous tissue (principal); E66.9 Obesity, unspecified; Z68.35 Body mass index [BMI] 35.0-35.9, adult
CPT/HCPCS: 99213; G0463

== ENCOUNTER → 2025-05-11 | Outpatient (CLI) | payer MEDICAID, SELFPAY | END | disposition home or self-care (01) | LOC: SWHD 12:58 | PROVIDERS: Visit Provider Student in an Organized Health Care Education/Training Program | DX: L02.216 Cutaneous abscess of umbilicus (principal); S31.105A Unspecified open wound of abdominal wall, periumbilic region without penetration into peritoneal cavity, initial encounter; X58.XXXA Exposure to other specified factors, initial encounter; T81.89XA Other complications of procedures, not elsewhere classified, initial encounter; G51.0 Bell's palsy; R73.03 Prediabetes; E66.9 Obesity, unspecified | CPT/HCPCS: 17250; A9270 ==

== ENCOUNTER → 2025-05-20 | Outpatient (CLI) | payer MEDICAID, SELFPAY | END | disposition home or self-care (01) | LOC: SWHD 13:41 | PROVIDERS: Visit Provider Surgery | DX: L02.216 Cutaneous abscess of umbilicus (principal); S31.105A Unspecified open wound of abdominal wall, periumbilic region without penetration into peritoneal cavity, initial encounter; X58.XXXA Exposure to other specified factors, initial encounter; T81.89XA Other complications of procedures, not elsewhere classified, initial encounter; G51.0 Bell's palsy; R73.03 Prediabetes | CPT/HCPCS: 99213; A9270; G0463 ==

== ENCOUNTER → 2025-05-30 | Outpatient (CLI) | payer MEDICAID, SELFPAY | END | disposition home or self-care (01) | LOC: SWHD 08:37 | PROVIDERS: Visit Provider Student in an Organized Health Care Education/Training Program | DX: L02.216 Cutaneous abscess of umbilicus (principal); S31.105A Unspecified open wound of abdominal wall, periumbilic region without penetration into peritoneal cavity, initial encounter; X58.XXXA Exposure to other specified factors, initial encounter; T81.89XA Other complications of procedures, not elsewhere classified, initial encounter; G51.0 Bell's palsy; R73.03 Prediabetes | CPT/HCPCS: 99213; G0463 ==

== ENCOUNTER → 2025-06-13 | Outpatient (CLI) | payer MEDICAID, SELFPAY | END | disposition home or self-care (01) | LOC: SWHD 08:02 | PROVIDERS: Visit Provider Surgery | DX: L02.216 Cutaneous abscess of umbilicus (principal); S31.105A Unspecified open wound of abdominal wall, periumbilic region without penetration into peritoneal cavity, initial encounter; X58.XXXA Exposure to other specified factors, initial encounter; T81.89XA Other complications of procedures, not elsewhere classified, initial encounter; G51.0 Bell's palsy; R73.03 Prediabetes | CPT/HCPCS: 99212; G0463 ==

== ENCOUNTER 2025-06-20 10:22 | Outpatient (AMB) | payer MEDICAID, SELFPAY ==
[2025-06-20 11:03] VITALS: BP 159/86; PULSE 67; RESP 18; TEMP 36.2; O2SAT 97; BMI 36.3
--- NOTE | 2025-06-20 11:03 | GSCOFFNT_ITS ---
Vital Signs - [facility] 06/20/25 11:03 Height 1.5 m Height Method Measured Weight 81.76 kg Weight Measurement Method Standing Scale BMI 36.3 BP 159/86 H Blood Pressure Source Automatic Cuff Blood Pressure Location Left Upper Arm Position Sitting Respiration 18 Pulse 67 Pulse Source Monitor Temp 97.1 F Temp Source Temporal Artery Scan Pulse Oximetry (%) 97 Oxygen Delivery Method Room Air Med/Allergies Allergies & Medications Allergies No Known Allergies Allergy (Verified 06/20/25 11:04) Medication Reconciliation semaglutide (weight loss) 1.7 mg/0.75 mL subcutaneous pen injector (Wegovy) 1.7 mg subcut .weekly 03/24/25 [History Confirmed 06/20/25] amoxicillin 500 mg-potassium clavulanate 125 mg tablet (Augmentin) 1 tab PO Q12H #6 tabs 04/26/25 [Rx Confirmed 06/20/25] oxycodone-acetaminophen 5 mg-325 mg tablet (Percocet) 1 tab PO Q6H PRN pain #20 tabs 04/26/25 [Rx Confirmed 06/20/25] MA Intake Visit Data Collection New Patient or Established: Established Patient (seen at [facility] within 3 years) Seen by Clinical Staff ONLY (RN/MA): No Reason for Visit:: 4 WEEK F/U Pain Present Currently: Yes Pain Scale Used: Sheppard-Moran/Numerical Designer And Patternmaker Required: Yes PCP or OBGYN visit in last 3 months: Yes Hx Now: No Do You Feel Safe at Home: Yes Authorities Contacted: N/A Smoking Status Smoking Status: Never smoker Immunization / Flu Flu Vaccine in the Last 12 Months: Yes Flu Vaccine Exclusion Criteria: Already Received Past Medical History Past Medical History 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; 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 CARDIAC: Negative Cardiac Disorders, Congestive Heart Failure, Edema, Cellulitis or Varicose Veins RESPIRATORY: Negative Chronic Obstructive Pulmonary Disease (COPD), Asthma, Pneumonia, Tuberculosis or Sleep Apnea GASTROINTESTINAL: Positive Gastrointestinal Disorders, Gall Bladder Disease and Obesity; Negative Hepatitis GENITOURINARY: Negative Genitourinary Disorders or Renal Disease REPRODUCTIVE: Positive Previous Pregnancies ENDOCRINE: Negative Endocrine Disorders, Diabetes Mellitus Type 1 or Diabetes Mellitus Type 2 HEMATOLOGIC: Negative Blood Disorders or Sickle Cell Disease OTHER HISTORY: Positive Chicken Pox and Measles; Negative Hospitalization, Autoimmune Disease, Shingles, Falls, Blood Transfusions, Blood Transfusion Reaction, Anesthesia Reactions, Chemotherapy, Radiation Therapy, MRSA, Mumps or Cancer Family History FAMILY HISTORY: Positive Family Cardiac Disorders; Negative Family Psychiatric Problems, Family Respiratory Disorders, Family Gastrointestinal Problems, Family Cancer, Family Surgery or Family Anesthesia Reaction Surgical History SURGICAL: Positive Abdominal Surgery and Section; Negative Cardiac Surgery or Pacemaker Social History SMOKING STATUS: Smoking status: Never smoker ALCOHOL: Alcohol Intake: Never HOUSING: Housing: Apartment LIVES WITH: Lives With: Children and Spouse HPI HPI Narrative Spoke to pt with in-person freelance interpreter/translator HISTORY OF PRESENT ILLNESS IMadiha, have obtained verbal consent from the patient, to be recorded during this encounter which may include, but not limited to, medical history, examination, treatment plans, and relevant health information.? Patient was informed that recording will be read and reviewed by myself before inclusion in the medical chart. 39F s/p umbilical hernia repair with mesh on 03/30, presenting with signs of a postoperative abscess s/p I&D 04/24, here for planned follow up. She reports an improvement in her condition, although she continues to experience mild pain on the right side of the umbilicus, which she had previously mentioned. This pain is constant and occurs almost daily, but it is not severe enough to require medication. She has not noticed any changes in the intensity of the pain since its onset. She is not engaging in any activities that could potentially exace rbate the pain. Her appetite remains good, and she is able to use the bathroom normally. She has not experienced any fevers. She was discharged from wound care on 06/13/2025. ROS Review of Systems Systems Reviewed: All systems reviewed, normal except as documented Objective/Exam General General Appearance: alert, cooperative and well groomed Resp Respiratory exam: Absent respiratory distress Abdominal Abdominal exam: Present soft, tenderness (mild tenderness to the right of the umbilicus) and incision (Well-healed umbilical incision, no erythema, no fluctuance); Absent distention Assessment & Plan Diagnosis / Problem List (1) Umbilical hernia: Status: Acute Assessment & Plan: The exact cause of the discomfort remains uncertain, but it could potentially be attributed to the mesh used in her hernia surgery. The skin appears healthy, suggesting no infection. It is possible that fluid accumulation may have occurred post-surgery, but reopening the surgical site does not seem necessary at this point. She has been informed that she can resume watering her plants. Medically, she is fit to return to work as her risk of hernia recurrence is low. However, she has decided to take a break until 12/2025. For pain management, [id number] medications such as Tylenol or Motrin can be used if needed. Office Procedures GNS Level of Care Nursing/Assessment Patient Status: Established Patient Nursing Assessment/Reassesment: Medication Reconciliation, Update PMH in EMR and Vital Signs Coordination of Care: Complex Care and Chronic Disease 1-5, Consent,records obtained, informed consent, Education Simp Pt/Fam, Results/Orders obtained and Staff clarify orders Special Needs: Language special needs Established Patient Charge Established Patient Point Assignment: 90 Established Patient Point Charge: EP Level 3 (80-115) Patient Portal Questionaires Social History Living Situation History Housing: Apartment Tobacco History Smoking Status: Never smoker Alcohol History Alcohol Intake: Never Domestic Abuse History Do You Feel Safe at Home: Yes Review of Systems Report any current symptoms Only answer those that you have currently: Past Medical History Past Medical History Have you ever been diagnosed with any of the following: Neurological Problems Seizures: No Delgado's Palsy: Yes Cardiology Problems Congestive Heart Failure: No Edema: No Cellulitis: No Varicose Veins: No Respiratory Problems Chronic Obstructive Pulmonary Disease (COPD): No Asthma: No Pneumonia: No Tuberculosis: No Sleep Apnea: No Stomache/Intestinal Problems Hepatitis: No Gall Bladder Disease: Yes Obesity: Yes Genital/Urinary Problems Renal Disease: No Reproductive Problems Previous Pregnancies: Yes Endocrine Problems Diabetes Mellitus Type 1: No Diabetes Mellitus Type 2: No Blood Problems Sickle Cell Disease: No Other Problems Hospitalization: No Autoimmune Disease: No Shingles: No Falls: No Blood Transfusions: No Blood Transfusion Reaction: No Anesthesia Reactions: No Chemotherapy: No Radiation Therapy: No MRSA: No Chicken Pox: Yes Measles: Yes Mumps: No Cancer: No Surgical History Pacemaker: No
== END 2025-06-20 11:34 | disposition home or self-care (01) ==
PROVIDERS: Supervising Provider Surgery; Visit Provider Surgery
DX: K42.9 Umbilical hernia without obstruction or gangrene (principal); E66.9 Obesity, unspecified; Z68.36 Body mass index [BMI] 36.0-36.9, adult
CPT/HCPCS: 99213; G0463

== ENCOUNTER 2025-09-12 13:23 | Outpatient (AMB) | payer MEDICAID, SELFPAY ==
[2025-09-12 13:41] VITALS: BP 166/75; PULSE 59; RESP 18; TEMP 36.6; O2SAT 97; BMI 36.9
--- NOTE | 2025-09-12 13:41 | PD.GSCLVISIT ---
Vital Signs - [facility] 09/12/25 13:41 Height 1.5 m Height Method Measured Weight 83.121 kg Weight Measurement Method Standing Scale BMI 36.9 BP 166/75 H Blood Pressure Source Automatic Cuff Blood Pressure Location Left Upper Arm Position Sitting Respiration 18 Pulse 59 L Pulse Source Monitor Temp 97.8 F Temp Source Temporal Artery Scan Pulse Oximetry (%) 97 Oxygen Delivery Method Room Air Med/Allergies Allergies & Medications Allergies No Known Allergies Allergy (Verified 09/12/25 13:42) Medication Reconciliation semaglutide (weight loss) 1.7 mg/0.75 mL subcutaneous pen injector (Wegovy) 1.7 mg subcut .weekly 03/24/25 [History Confirmed 09/12/25] amoxicillin 500 mg-potassium clavulanate 125 mg tablet (Augmentin) 1 tab PO Q12H #6 tabs 04/26/25 [Rx Confirmed 09/12/25] oxycodone-acetaminophen 5 mg-325 mg tablet (Percocet) 1 tab PO Q6H PRN pain #20 tabs 04/26/25 [Rx Confirmed 09/12/25] MA Intake Visit Data Collection New Patient or Established: Established Patient (seen at [facility] within 3 years) Seen by Clinical Staff ONLY (RN/MA): No Reason for Visit:: 3 MONTH F/U Pain Present Currently: No Pain Scale Used: Sheppard-Moran/[employer]ical Employment Director Required: Yes PCP or OBGYN visit in last 3 months: Yes Hx Now: No Do You Feel Safe at Home: Yes Authorities Contacted: N/A Smoking Status Smoking Status: Never smoker Immunization / Flu Flu Vaccine in the Last 12 Months: Yes Flu Vaccine Exclusion Criteria: Already Received Past Medical History Past Medical History 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; 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 CARDIAC: Negative Cardiac Disorders, Congestive Heart Failure, Edema, Cellulitis or Varicose Veins RESPIRATORY: Negative Chronic Obstructive Pulmonary Disease (COPD), Asthma, Pneumonia, Tuberculosis or Sleep Apnea GASTROINTESTINAL: Positive Gastrointestinal Disorders, Gall Bladder Disease and Obesity; Negative Hepatitis GENITOURINARY: Negative Genitourinary Disorders or Renal Disease REPRODUCTIVE: Positive Previous Pregnancies ENDOCRINE: Negative Endocrine Disorders, Diabetes Mellitus Type 1 or Diabetes Mellitus Type 2 HEMATOLOGIC: Negative Blood Disorders or Sickle Cell Disease OTHER HISTORY: Positive Chicken Pox and Measles; Negative Hospitalization, Autoimmune Disease, Shingles, Falls, Blood Transfusions, Blood Transfusion Reaction, Anesthesia Reactions, Chemotherapy, Radiation Therapy, MRSA, Mumps or Cancer Family History FAMILY HISTORY: Positive Family Cardiac Disorders; Negative Family Psychiatric Problems, Family Respiratory Disorders, Family Gastrointestinal Problems, Family Cancer, Family Surgery or Family Anesthesia Reaction Surgical History SURGICAL: Positive Abdominal Surgery and Section; Negative Cardiac Surgery or Pacemaker Social History SMOKING STATUS: Smoking status: Never smoker ALCOHOL: Alcohol Intake: Never HOUSING: Housing: Apartment LIVES WITH: Lives With: Children and Spouse HPI HPI Narrative Spoke to pt with in-person human resource internship 39F s/p umbilical hernia repair with mesh on 03/30, presenting with signs of a postoperative abscess s/p I&D 04/24, here for planned follow up. Pt feels well overall, is not needing any pain medications however she still notes discomfort to the right and inferior to the umbilicus which is unchanged since surgery. Pt also states that since surgery she has noted a severe lower abdominal pain that occurs 20 minutes before she has a BM; she is then able to have a soft healthy BM without any straining and her pain then resolves. Otherwise she is feeling well with no complaints ROS Review of Systems Systems Reviewed: All systems reviewed, normal except as documented Objective/Exam General General Appearance: alert, cooperative and well groomed Resp Respiratory exam: Absent respiratory distress Abdominal Abdominal exam: Present soft and scar (umbilical scar well-healed); Absent distention, tenderness or hernia (no sign of recurrent hernia) Assessment & Plan Diagnosis / Problem List (1) Umbilical hernia: Status: Acute Assessment & Plan: 39F s/p umbilical hernia repair with mesh on 03/30, presenting with signs of a postoperative abscess s/p I&D 04/24, here for planned follow up. As pt as noted this right lower abdominal discomfort since surgery I offered to order a CT AP for further evaluation. Plan: F/u after CT AP Orders: Orders CT abdomen pelvis w con 2 Weeks K42.9 - Umbilical hernia without obstruction or gangrene Basic Metabolic Panel Today Office Procedures GNS Level of Care Nursing/Assessment Patient Status: Established Patient Nursing Assessment/Reassesment: Medication Reconciliation, Update PMH in EMR and Vital Signs Coordination of Care: Complex Care and Chronic Disease 1-5, Education Complex Pt/Fam, Consent,records obtained, informed consent, Results/Orders obtained and Staff clarify orders Special Needs: Language special needs Established Patient Charge Established Patient Point Assignment: 95 Established Patient Point Charge: EP Level 3 (80-115) Patient Portal Questionaires Social History Living Situation History Housing: Apartment Tobacco History Smoking Status: Never smoker Alcohol History Alcohol Intake: Never Domestic Abuse History Do You Feel Safe at Home: Yes Review of Systems Report any current symptoms Only answer those that you have currently: Past Medical History Past Medical History Have you ever been diagnosed with any of the following: Neurological Problems Seizures: No Delgado's Palsy: Yes Cardiology Problems Congestive Heart Failure: No Edema: No Cellulitis: No Varicose Veins: No Respiratory Problems Chronic Obstructive Pulmonary Disease (COPD): No Asthma: No Pneumonia: No Tuberculosis: No Sleep Apnea: No Stomache/Intestinal Problems Hepatitis: No Gall Bladder Disease: Yes Obesity: Yes Genital/Urinary Problems Renal Disease: No Reproductive Problems Previous Pregnancies: Yes Endocrine Problems Diabetes Mellitus Type 1: No Diabetes Mellitus Type 2: No Blood Problems Sickle Cell Disease: No Other Problems Hospitalization: No Autoimmune Disease: No Shingles: No Falls: No Blood Transfusions: No Blood Transfusion Reaction: No Anesthesia Reactions: No Chemotherapy: No Radiation Therapy: No MRSA: No Chicken Pox: Yes Measles: Yes Mumps: No Cancer: No Surgical History Pacemaker: No
== END 2025-09-12 14:11 | disposition home or self-care (01) ==
PROVIDERS: Supervising Provider Surgery; Visit Provider Surgery
DX: K42.9 Umbilical hernia without obstruction or gangrene (principal)
CPT/HCPCS: 99213; G0463